=== PATIENT | female | born 1950 | race Caucasian/White ===

== ENCOUNTER → 2019-06-19 11:51 | Outpatient (CLI) | payer MEDICARE, MEDICAID, SELFPAY ==
[2019-06-19 10:57] VITALS: BMI 28.9
[2019-06-19 13:23] LABS: Absolute Lymphocyte Count 0.94 X10^3/uL (0.83-4.51); Absolute Neutrophil Count 2.8 X10^3/uL (2.0-7.7); Basophil# 0.05 X10^3/uL; Basophil% 1.2 % (0-1); Eosinophil# 0.03 X10^3/uL; Eosinophils% 0.7 % (0-5); Hematocrit 38.3 % (37-47); Hemoglobin 12.3 g/dL (12.0-15.0); Lymphocyte # 0.94 X10^3/ul (4.0); Lymphocyte % 22.3 % (19-41); Mean Corp Hgb Conc 32.1 g/dL (32-36); Mean Corpuscular Hgb 25.8 pg (27.0-32.0); Mean Corpuscular Volume 80.3 fL (81-99); Mean Platelet Vol. 9.8 fl (6.2-12.0); Monocyte# 0.39 X10^3/uL; Monocyte% 9.3 % (0-10); NRBC Flagged by Analyzer 0 % (0-5); Neutrophil # 2.79 X10^3/uL (2.7-7.7); Neutrophil % 66.3 % (47-70); Platelet Count 208 K/mm3 (150-450); RBC Distribution Width CV 13.9 % (11.6-14.6); RBC Distribution Width SD 40.9 fl (35.1-43.9); Red Blood Count 4.77 M/mm3 (4.2-5.4); White Blood Count 4.2 K/mm3 (4.4-11.0)
[2019-06-19 13:56] LABS: ALB/GLOB Ratio 0.9 RATIO (0.9-2.4); AST(SGOT) 26 U/L (15-37); Alanine Aminotransfer ALT/SGPT 39 U/L (13-56); Albumin, Serum 3.6 g/dL (3.2-5.0); Alkaline Phosphatase 100 U/L (45-117); Anion Gap 6 (5-15); BUN 22 mg/dL (7-18); BUN/Creat Ratio 24.8 RATIO (10-20); Calcium,Total 9.2 mg/dL (8.5-10.1); Chloride 106 mmol/L (98-107); Creatinine, Serum 0.89 mg/dL (0.55-1.02); EST Glomerular Filtration Rate 67 mL/min (>60); Est Glom Filt Rate - Afr Amer 82 mL/min (>60); Globulin 3.8 g/dL (2.2-4.2); Glucose 100 mg/dL (74-106); Potassium 3.5 mmol/L (3.5-5.1); Protein, Total 7.4 g/dL (6.4-8.2); Sodium Level 141 mmol/L (136-145)
== END ==
PROVIDERS: PCP Internal Medicine; Visit Provider Internal Medicine
DX: J45.909 Unspecified asthma, uncomplicated (principal); I10 Essential (primary) hypertension
CPT/HCPCS: 36415; 80053; 85025

== ENCOUNTER → 2019-10-01 12:55 | Outpatient (CLI) | payer MEDICARE, MEDICAID, SELFPAY ==
[2019-09-23 12:31] VITALS: BMI 25.5
[2019-10-01 13:46] LABS: Cholesterol 201 mg/dL (200); High Density Lipoprotein 74 mg/dL; Triglycerides 44 mg/dL; Very Low Density Lipoprotein 9 mg/dL (5-40)
== END ==
PROVIDERS: PCP Internal Medicine; Referring Provider Internal Medicine; Visit Provider Internal Medicine
DX: I10 Essential (primary) hypertension (principal); E78.5 Hyperlipidemia, unspecified
CPT/HCPCS: 80061

== ENCOUNTER → 2019-12-23 08:33 | Outpatient (CLI) | payer MEDICARE, OTHER, SELFPAY ==
[2019-09-23 12:31] VITALS: BMI 25.5
[2019-12-16 09:51] VITALS: BMI 25.5
--- NOTE | 2019-12-23 08:36 | BD_ITS ---
STUDY: DUAL ENERGY X-RAY ABSORPTIOMETRY / DXA REASON FOR EXAM: Female, 69 years old. 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 COMPARISON: None. FINDINGS: Lumbar Spine (L1-L4): g/cm2 (0.897) / T-score (-2.3) / Z-score (-0.6) Findings are suggestive of osteopenia with a high fracture risk. Left Femur Total: g/cm2 (0.703) / T-score (-2.4) / Z-score (-1.1) Left Femoral Neck: g/cm2 (0.663) / T-score (-2.7) / Z-score (-1.1) Right Femur Total: g/cm2 (0.657) / T-score (-2.8) / Z-score (-1.4) Right Femoral Neck: g/cm2 (0.658) / T-score (-2.7) / Z-score (-1.1) BD/Dexa Bone Density Study IMPRESSION: The patient is considered osteoporotic as outlined below according to World Micheal Organization (WHO) criteria with a high fracture risk. Reference Information: The T-score is the number of standard deviations above or below the standard which is normal for young adults at their peak bone mineral density. The World Health Organization (WHO) interprets the T-scores as follows: Above -1 Normal bone density Between -1 and -2.5 Osteopenia Equal to / or below -2.5 Osteoporosis As a practical clinical guideline, osteopenia may be graded as follows: Mild -1 through -1.5 Moderate -1.6 through -2.0 Severe -2.1 through -2.4 The Z-score is the number of standard deviations above or below age-matched controls. A Z-score of less than -1.5 would be considered abnormal. References: 1. NIH Osteoporosis and Related Bone Diseases http://www.osteo.org 2. International Society for Clinical Densitometry http://www.iscd.org 3. National Osteoporosis Foundation http://www.nof.org Electronically Signed: Roger Lau, at 15:43 EDT , Service support ,
== END ==
PROVIDERS: PCP Internal Medicine; Referring Provider Nurse Practitioner Family; Visit Provider Nurse Practitioner Family
DX: Z78.0 Asymptomatic menopausal state (principal)
CPT/HCPCS: 77080

== ENCOUNTER → 2020-01-06 09:53 | Outpatient (CLI) | payer MEDICARE, MEDICAID, SELFPAY ==
[2020-01-06 09:38] VITALS: BMI 25.5
[2020-01-06 11:14] LABS: Anion Gap 6 (5-15); BUN 28 mg/dL (7-18); BUN/Creat Ratio 28.7 RATIO (10-20); Calcium,Total 9.3 mg/dL (8.5-10.1); Chloride 101 mmol/L (98-107); Creatinine, Serum 0.98 mg/dL (0.55-1.02); EST Glomerular Filtration Rate 60 mL/min (>60); Est Glom Filt Rate - Afr Amer 73 mL/min (>60); Glucose 100 mg/dL (74-106); Potassium 3.4 mmol/L (3.5-5.1); Sodium Level 140 mmol/L (136-145)
[2020-01-06 11:18] LABS: Vitamin D,25 Hydroxy 18.1 ng/mL
== END ==
PROVIDERS: Nurse Practitioner Family; PCP Internal Medicine; Referring Provider Internal Medicine; Visit Provider Internal Medicine
DX: I10 Essential (primary) hypertension (principal); M81.0 Age-related osteoporosis without current pathological fracture
CPT/HCPCS: 36415; 80048; 82306

== ENCOUNTER → 2020-03-18 11:03 | Outpatient (CLI) | payer MEDICARE, MEDICAID, SELFPAY ==
[2020-03-18 10:27] VITALS: BMI 29.6
[2020-03-18 12:49] LABS: AST(SGOT) 19 U/L (15-37); Alanine Aminotransfer ALT/SGPT 30 U/L (13-56); Albumin, Serum 3.8 g/dL (3.2-5.0); Alkaline Phosphatase 84 U/L (45-117); Anion Gap 5 (5-15); BUN 24 mg/dL (7-18); BUN/Creat Ratio 26.6 RATIO (10-20); Calcium,Total 9.7 mg/dL (8.5-10.1); Chloride 106 mmol/L (98-107); EST Glomerular Filtration Rate 66 mL/min (>60); Est Glom Filt Rate - Afr Amer 80 mL/min (>60); Globulin 3.9 g/dL (2.2-4.2); Glucose 100 mg/dL (74-106); Potassium 3.8 mmol/L (3.5-5.1); Protein, Total 7.7 g/dL (6.4-8.2); Sodium Level 139 mmol/L (136-145)
== END ==
PROVIDERS: PCP Internal Medicine; Referring Provider Internal Medicine; Visit Provider Internal Medicine
DX: I10 Essential (primary) hypertension (principal)
CPT/HCPCS: 36415; 80053

== ENCOUNTER → 2020-11-02 09:50 | Outpatient (CLI) | payer MEDICARE, SELFPAY ==
[2020-11-02 09:28] VITALS: BMI 25.5
[2020-11-02 12:07] LABS: Absolute Lymphocyte Count 0.84 X10^3/uL (0.83-4.51); Basophil# 0.04 X10^3/uL; Basophil% 0.7 % (0-1); Eosinophil# 0.04 X10^3/uL; Eosinophils% 0.7 % (0-5); Hematocrit 39.6 % (37-47); Hemoglobin 12.7 g/dL (12.0-15.0); Lymphocyte # 0.84 X10^3/ul (0.83-4.51); Lymphocyte % 15.3 % (19-41); Mean Corp Hgb Conc 32.1 g/dL (32-36); Mean Platelet Vol. 10.4 fl (6.2-12.0); Monocyte# 0.51 X10^3/uL; Monocyte% 9.3 % (0-10); NRBC Flagged by Analyzer 0 % (0-5); Neutrophil # 4.03 X10^3/uL (2.7-7.7); Neutrophil % 73.6 % (47-70); Platelet Count 258 K/mm3 (150-450); RBC Distribution Width CV 14.7 % (11.6-14.6); RBC Distribution Width SD 42.7 fl (35.1-43.9); Red Blood Count 4.89 M/mm3 (4.2-5.4); White Blood Count 5.5 K/mm3 (4.4-11.0)
[2020-11-02 12:24] LABS: Vitamin D,25 Hydroxy 62.9 ng/mL
[2020-11-02 12:40] LABS: AST(SGOT) 23 U/L (15-37); Alanine Aminotransfer ALT/SGPT 32 U/L (13-56); Albumin, Serum 3.8 g/dL (3.2-5.0); Alkaline Phosphatase 94 U/L (45-117); Anion Gap 6 (5-15); BUN 24 mg/dL (7-18); BUN/Creat Ratio 27.8 RATIO (10-20); Calcium,Total 9.4 mg/dL (8.5-10.1); Chloride 103 mmol/L (98-107); Cholesterol 211 mg/dL (200); Creatinine, Serum 0.86 mg/dL (0.55-1.02); EST Glomerular Filtration Rate 69 mL/min (>60); Est Glom Filt Rate - Afr Amer 84 mL/min (>60); Glucose 96 mg/dL (74-106); High Density Lipoprotein 85 mg/dL; Potassium 3.4 mmol/L (3.5-5.1); Protein, Total 7.8 g/dL (6.4-8.2); Sodium Level 140 mmol/L (136-145); Triglycerides 71 mg/dL; Very Low Density Lipoprotein 14 mg/dL (5-40)
== END ==
PROVIDERS: PCP Internal Medicine; Visit Provider Internal Medicine
DX: I10 Essential (primary) hypertension (principal); M81.0 Age-related osteoporosis without current pathological fracture
CPT/HCPCS: 36415; 80053; 80061; 82306; 85025

== ENCOUNTER → 2020-11-29 15:04 | Outpatient (CLI) | payer MEDICARE, MEDICAID, SELFPAY ==
[2020-11-02 09:28] VITALS: BMI 25.5
--- NOTE | 2020-11-29 15:16 | RAD_ITS ---
STUDY: X-RAY - LUMBAR SPINE REASON FOR EXAM: Female, 70 years old. Low back pain TECHNIQUE: 3 view(s) of the lumbar spine were obtained. COMPARISON: None FINDINGS: Normal lumbar lordosis. There is no substantial scoliosis. There is a normal alignment of the vertebrae. Normal vertebral bodies and endplates. No fracture. Mild disc space narrowing at L4-5 and L5-S1. Disc spaces are otherwise well-maintained. The soft tissue structures are unremarkable. RAD/Lumbar Spine 2 or 3 Views IMPRESSION: 1. No acute findings. 2. Mild degenerative disc changes. Electronically Signed: Tess Vaca MD at 23:53 EDT Tel , Service support ,
== END ==
PROVIDERS: PCP Internal Medicine; Referring Provider Internal Medicine; Visit Provider Internal Medicine
DX: M54.5 Low back pain (principal)
CPT/HCPCS: 72100

== ENCOUNTER → 2020-12-31 | Outpatient (CLI) | payer MEDICARE, MEDICAID, SELFPAY ==
[2020-12-30 17:17] VITALS: BMI 29.2
[2020-12-31 14:53] LABS: Bacteria 0 SEEN /hpf (None Seen); Mucous, Urine 0 SEEN /hpf (<or=2+)
[2020-12-31 15:03] LABS: Color, Urine Yellow (Yellow); Glucose, Dipstick Normal (Normal); Ketone-Dipstick Negative (Negative); Leukocyte Esterase-Dipstick 100 /ul (Negative); Nitrite-Dipstick Negative (Negative); Occult Blood-Urine 250 /ul (Negative); Protein-Dipstick Negative (Negative); Urine Bilirubin Dipstick Negative (Negative); Urine Clarity Clear (Clear); Urine Urobilinogen Normal (Normal)
[2020-12-31 15:17] LABS: Squamous Epithelial Cells - UA 5-10 SEEN /hpf (5-10); White Blood Cells 0-5 SEEN /hpf (0-5)
[2020-12-31 15:18] LABS: Red Blood Cells-Urine 0-5 SEEN /hpf (0-5)
== END | disposition home or self-care (01) ==
PROVIDERS: PCP Internal Medicine; Visit Provider Physician Assistant Surgical
DX: R31.9 Hematuria, unspecified (principal)
CPT/HCPCS: 81001; 87086; 87088

== ENCOUNTER → 2021-01-31 10:27 | Outpatient (CLI) | payer MEDICARE, MEDICAID, SELFPAY ==
[2021-01-31 10:44] LABS: Bacteria 0 SEEN /hpf (None Seen); Mucous, Urine 0 SEEN /hpf (<or=2+); Squamous Epithelial Cells - UA 0 SEEN /hpf (5-10)
[2021-01-31 12:15] LABS: Color, Urine Yellow (Yellow); Glucose, Dipstick Normal (Normal); Ketone-Dipstick Negative (Negative); Leukocyte Esterase-Dipstick 25 /ul (Negative); Nitrite-Dipstick Negative (Negative); Occult Blood-Urine 50 /ul (Negative); Protein-Dipstick Negative (Negative); Urine Bilirubin Dipstick Negative (Negative); Urine Clarity Clear (Clear); Urine Urobilinogen Normal (Normal)
[2021-01-31 12:25] LABS: Red Blood Cells-Urine 5-10 SEEN /hpf (0-5); White Blood Cells 0-5 SEEN /hpf (0-5)
[2021-01-31 12:39] LABS: Anion Gap 7 (5-15); BUN 26 mg/dL (7-18); BUN/Creat Ratio 29.7 RATIO (10-20); Calcium,Total 9.3 mg/dL (8.5-10.1); Chloride 102 mmol/L (98-107); Creatinine, Serum 0.88 mg/dL (0.55-1.02); EST Glomerular Filtration Rate 68 mL/min (>60); Est Glom Filt Rate - Afr Amer 83 mL/min (>60); Glucose 101 mg/dL (74-106); Potassium 3.6 mmol/L (3.5-5.1); Sodium Level 140 mmol/L (136-145)
== END ==
PROVIDERS: PCP Internal Medicine; Referring Provider Internal Medicine; Visit Provider Internal Medicine
DX: I10 Essential (primary) hypertension (principal); R31.9 Hematuria, unspecified
CPT/HCPCS: 36415; 80048; 81001

== ENCOUNTER → 2021-05-02 11:25 | Outpatient (CLI) | payer MEDICARE, MEDICAID, SELFPAY ==
[2021-05-02 11:27] LABS: Bacteria 0 SEEN /hpf (None Seen); Mucous, Urine 0 SEEN /hpf (<or=2+); White Blood Cells 0 SEEN /hpf (0-5)
[2021-05-02 12:18] LABS: Color, Urine Yellow (Yellow); Glucose, Dipstick Normal (Normal); Ketone-Dipstick 5 mg/dl (Negative); Leukocyte Esterase-Dipstick 25 /ul (Negative); Nitrite-Dipstick Negative (Negative); Occult Blood-Urine 150 /ul (Negative); Protein-Dipstick 15 mg/dl (Negative); Urine Bilirubin Dipstick Negative (Negative); Urine Clarity Sl. Cloudy (Clear); Urine Urobilinogen Normal (Normal)
[2021-05-02 12:28] LABS: Red Blood Cells-Urine 0-5 SEEN /hpf (0-5); Squamous Epithelial Cells - UA 0-5 SEEN /hpf (5-10)
== END ==
PROVIDERS: PCP Internal Medicine; Referring Provider Internal Medicine; Visit Provider Internal Medicine
DX: R31.9 Hematuria, unspecified (principal)
CPT/HCPCS: 81001

== ENCOUNTER → 2021-05-18 | Outpatient (CLI) | payer MEDICARE, MEDICAID, SELFPAY ==
--- NOTE | 2021-05-18 11:00 | CYSPIN_PTH ---
PATIENT: ARIANA CHRISTIAN LOC: [facility] U#:[id number] AGE/SX: 71/F ROOM: RE05/18/[address]: Dr. Tonya Mcdaniel MD : 1950 BED: DIS: 05/18/2021 SPEC #: [id number] RECD: 05/18/21 15:00 STATUS: KIRBY BOLA #: [id number] BAILEY: 05/18/21 11:[address]: Tonya Mcdaniel DEPT: CYTOLOGY RECD BY: Jacinto Sherwood ENTERED: 05/19/21 09:35 SP TYPE: CYSPIN FL OTHR DR: Dr. Aidan Hall MD Tissues: Urine Procedures: Pap Stain (control) Special Stain Group II Cytospin Fluid HEADER OPERATION: Not noted PRE-OP DIAGNOSIS: Gross hematuria TISSUE SUBMITTED: Urine for cytology DIAGNOSIS CYTOLOGY Urine for cytology (cytospin): Atypical urothelial cells present. AM:alo 05/19/2021 CYTOLOGY STUDY Slides are reviewed. CYTOLOGY GROSS Received is 40 ml of cloudy yellow fluid labeled with the patient's name and and designated per the requisition as urine. Submitted for cytology preparation. / alo 05/19/2021 TC:? CPT: 92464
[2021-05-18 17:40] LABS: Cytology, Body Fluid / CSF SEE PATHOLOGY REPORT
== END | disposition home or self-care (01) ==
PROVIDERS: PCP Internal Medicine; Visit Provider Urology
DX: R31.0 Gross hematuria (principal)
CPT/HCPCS: 88108; 88313

== ENCOUNTER 2021-06-01 14:30 | Outpatient (RCR) | payer MEDICARE, MEDICAID, SELFPAY ==
[2020-11-02 09:28] VITALS: BMI 25.5
--- NOTE | 2020-11-30 13:48 | HP.PTEVAL_ITS ---
Patient's Visit Information ARIANA CHRISTIAN is a 70 year old F referred to Physical Therapy by Dr. Aidan Hall MD with a diagnosis of LOW BACK PAIN. Date of Evaluation: 11/30/20 Physical Therapist: Seven Juarez PT, Cert MDT, OCS - Visit Plan Frequency: 2x /Week Duration: 4 Weeks Plan: AVOID EXTREME FLEXION OSTEOPORISIS. PT INTERVETIONS DLS ABD,POSTURE EX'S, LE STRENGTHENIN AND MODALTIES NEEDEDED - Subjective This 70 y/o female presents to physical therapy with back pain for about one year. LBP as worse in past 2 months . Patient did have bone density thus has osteoporosis. Patient did have x-ray showed DDD. Seen DR recommended PT . Pain is located symmetrical Lumbar and lateral hips. Aggravating factors lifting, standing, walking and sitting. Alleviating factors rest./ice. Coughing/sneezing- . Bowel/bladder-. Denies parathesia/tingling -. Sleeping is affected by pain. No prior treatment .Worse in the morning. Patient does have h/o of falling last year sliding down hill. Patient goal is to minimize pain. Patient uses cane for balance. Patient back pain affects function and ADLS'. Patient pain affects OL. SOCIAL: . VOCATION; retired - Pain Bilateral Back Pain Intensity (Out of 10): 8 Pain Intensity Range: 10 - Objective POSTURE: mild forward posture. GAIT: ambulates with small base quad cane antal gic gait slow shan. SYMMTRIES: align. PALAPTION: unremarkable. NUERO: denies parathesia/tingling, reflexes L4-5,L5-S1 1/3. MMT: quads/hams 4/5,hip flexion 4-/5,ankle 4/5. LUMBAR ROM: flexion mod loss, extension severe loss, side glides min/mod loss. FLEXABLITY: hams min tight ,piriformis mod tight. IR of hip: 25 degrres - Special Tests L/S Slump test left side: Negative L/S Slump test right side: Negative L/S Left Straight Leg Raise: Negative L/S Right Straight Leg Raise: Negative - Goals Goal 1:: I with HEP Goal Time Frame: 4-6 Weeks Goal 2:: Improve quality of gait with less pain using QC. Goal Time Frame: 4-6 Weeks Goal 3:: Patient to decrease LBP by 50% or > to improve function with ADLS'S Goal Time Frame: 4-6 Weeks Goal 4:: Patient to improve lumbar ROM for function of recovery Goal Time Frame: 4-6 Weeks Goal 5:: Patient to improve back nowestry score by 5 points or > to improve QOL. Goal Time Frame: 4-6 Weeks - Rehabilitation Potential Physical Therapy Diagnosis: This patient has LBP with symmetrical pain, decrease lumbar ROM , decrease gait and impairs function with standing during ADL's thus benefit from skilled PT Rehabilitation Potential: Good - Anticipated Interventions Patient/Client Instruction: Educate patient on: Condition, Plan of Care For the Purpose of:: To decrease pain, To increase ROM, To improve muscle performance and motor function, To improve ability to perform ADL's, To increase tolerance to activity/condition/position, To improve performance and independence with ADL's, To improve ability of physical actions for home/community/work/leisure, To increase flexibility/ROM, To reduce risk of recurrence, To improve ability to perform tasks related to life management Therapeutic Exercise to Include: Strength training, Body mechanics, Postural training, Dynamic Lumbar Stabilization Comment: BLE For the Purpose of:: To decrease pain, To improve muscle performance and motor function, To improve ability to perform ADL's, To increase tolerance to activity/condition/position, To improve ability of physical actions for home/community/work/leisure, To improve health of tissue, To reduce risk of recurrence, To improve ability to perform tasks related to life management TENS: Yes IF ES: Yes Cryotherapy (ice pack, ice massage): Yes Thermo therapy (hot pack): Yes Ultrasound (thermal/non thermal): Yes For the Purpose of:: To decrease pain, To improve nutrient delivery to tissue, To increase oxygenation perfusion, To improve health of tissue, To decrease soft tissue restriction Thank you for the opportunity to evaluate your patient. For Medicare and Medicare HMO plans, please review the plan of care and approve it. It will need to be FAXED BACK to us at [phone] for Medicare purposes. For Medicare only, by signing this I certify the plan of care. Please let me know if there are questions or concerns regarding this plan of care. Physician Signature: Date:
--- NOTE | 2021-01-02 13:00 | HP.PTREVAL ---
Dr. Aidan Hall MD, It has been my pleasure to treat ARIANA CHRISTIAN over the last 7 visits for LOW BACK PAIN. Please see the progress note below for an update on the physical therapy plan of care! Subjective: Doing better. less pain overall. Objective/Function: POSTURE: MIN THORACIC KYPHOSIS. GAIT: AMBULATES WITH QC MILD UNSTEADY. MMT: QUADS/HAMS 4/5,HIP FLEXION 4-/5. LUMBAR ROM: FLEXION MOD LOSS,EXT MOD LOSS Plan Plan: AVOID EXTREME FLEXION OSTEOPORISIS. PT INTERVETIONS DLS, ABD and POSTURE EX'S, LE STRENGTHENING AND MODALTIES NEEDEDED Balance/Gait/Functional tests - Balance/Special Test Scores Oswestry Low Back Score: 26 Goals Goal 1:: I with HEP Goal Time Frame: 4-6 Weeks Goal Progress: Progressing Goal 2:: Improve quality of gait with less pain using QC. Goal Time Frame: 4-6 Weeks Goal Progress: Progressing Goal 3:: Patient to decrease LBP by 60% or > to improve function with ADLS'S Goal Time Frame: 4-6 Weeks Goal Progress: Progressing Goal 4:: Patient to improve lumbar ROM for function of recovery Goal Time Frame: 4-6 Weeks Goal Progress: Progressing Goal 5:: Patient to improve back nowestry score by 5 points or > to improve QOL. Goal Time Frame: 4-6 Weeks Goal Progress: Progressing Anticipated Interventions Patient/Client Instruction: Educate patient on: Condition, Plan of Care For the Purpose of:: To decrease pain, To increase ROM, To improve muscle performance and motor function, To improve ability to perform ADL's, To increase tolerance to activity/condition/position, To improve performance and independence with ADL's, To improve ability of physical actions for home/community/work/leisure, To increase flexibility/ROM, To reduce risk of recurrence, To improve ability to perform tasks related to life management Therapeutic Exercise to Include: Strength training, Body mechanics, Postural training, Dynamic Lumbar Stabilization Comment: BLE For the Purpose of:: To decrease pain, To improve muscle performance and motor function, To improve ability to perform ADL's, To increase tolerance to activity/condition/position, To improve ability of physical actions for home/community/work/leisure, To improve health of tissue, To reduce risk of recurrence, To improve ability to perform tasks related to life management TENS: Yes IF ES: Yes Cryotherapy (ice pack, ice massage): Yes Thermo therapy (hot pack): Yes Ultrasound (thermal/non thermal): Yes For the Purpose of:: To decrease pain, To improve nutrient delivery to tissue, To increase oxygenation perfusion, To improve health of tissue, To decrease soft tissue restriction Please do not hesitate to contact me at [phone] by phone or if you have questions or concerns regarding this new plan of care! Sincerely, Seven Juarez, PT, Cert MDT, OCS
--- NOTE | 2021-02-27 17:19 | HP.PTREVAL ---
Dr. Aidan Hall MD, It has been my pleasure to treat ARIANA CHRISTIAN over the last 19 visits for LOW BACK PAIN. Please see the progress note below for an update on the physical therapy plan of care! Subjective: Patient is doing well ..overall able to walk without cane . Pain is less symmetrical worse in morning Objective/Function: POSTURE: MILD FORWARD POSTURE. GAIT: RECIPROCAL PATTERN MILD FORWARD POSTURE LATERAL SWAY. MMT: QUADS/HAMS 4/5 ,HIP F;LEXION 4-/5. LUMBAR ROM: FLEXION MIN LOSS,EXTENSION MOD LOSS Plan Plan: cont with poc 2xweek for 4 vweeks. AVOID EXTREME FLEXION OSTEOPORISIS. PT INTERVETIONS DLS, ABD and POSTURE EX'S, LE STRENGTHENING AND MODALTIES NEEDEDED Balance/Gait/Functional tests - Balance/Special Test Scores Oswestry Low Back Score: 17 Goals Goal 1:: I with HEP Goal Time Frame: 4-6 Weeks Goal Progress: Progressing Goal 2:: Improve quality of gait with antalgic gait with no cane . ( new GOAL) Goal Time Frame: 4-6 Weeks Goal Progress: Progressing Goal 3:: Patient to decrease LBP by 60% or > to improve function with ADLS'S Goal Time Frame: 4-6 Weeks Goal Progress: Progressing Goal 4:: Patient to improve lumbar ROM for function of recovery Goal Time Frame: 4-6 Weeks Goal Progress: Progressing Goal 5:: Patient to improve back owestry score by 5 points to improve QOL.( new goal) Goal Time Frame: 4-6 Weeks Goal Progress: Progressing Goal 6:: Patient increase hips to 4/5 tp improve gait Anticipated Interventions Patient/Client Instruction: Educate patient on: Condition, Plan of Care For the Purpose of:: To decrease pain, To increase ROM, To improve muscle performance and motor function, To improve ability to perform ADL's, To increase tolerance to activity/condition/position, To improve performance and independence with ADL's, To improve ability of physical actions for home/community/work/leisure, To increase flexibility/ROM, To reduce risk of recurrence, To improve ability to perform tasks related to life management Therapeutic Exercise to Include: Strength training, Body mechanics, Postural training, Dynamic Lumbar Stabilization Comment: BLE For the Purpose of:: To decrease pain, To improve muscle performance and motor function, To improve ability to perform ADL's, To increase tolerance to activity/condition/position, To improve ability of physical actions for home/community/work/leisure, To improve health of tissue, To reduce risk of recurrence, To improve ability to perform tasks related to life management TENS: Yes IF ES: Yes Cryotherapy (ice pack, ice massage): Yes Thermo therapy (hot pack): Yes Ultrasound (thermal/non thermal): Yes For the Purpose of:: To decrease pain, To improve nutrient delivery to tissue, To increase oxygenation perfusion, To improve health of tissue, To decrease soft tissue restriction Please do not hesitate to contact me at [phone] by phone or if you have questions or concerns regarding this new plan of care! Sincerely, Seven Juarez, PT, Cert MDT, OCS
--- NOTE | 2021-04-25 14:59 | HP.PTREVAL ---
Dr. Aidan Hall MD, It has been my pleasure to treat ARIANA CHRISTIAN over the last 28 visits for LOW BACK PAIN. Please see the progress note below for an update on the physical therapy plan of care! Subjective: PT is helping gait pain and able to use cane for walking. So walking is better with endurance Objective/Function: POSTURE: mild forward posture. NEURO: c/o paresthesia in feet, reflexes L3-4,L4-5,L5-S1 2/3. MMT: QUADS/HAMS /HIP 4/5. LUMBAR ROM: flexion min ,extension mod severe Plan Plan: cont with poc 1xweek for 4 vweeks with goals to I gym program. AVOID EXTREME FLEXION OSTEOPORISIS. PT INTERVETIONS DLS, ABD and POSTURE EX'S, LE STRENGTHENING Balance/Gait/Functional tests - Balance/Special Test Scores Oswestry Low Back Score: 13 Goals Goal 1:: I with HEP and gym program( no goals Goal Time Frame: 4-6 Weeks Goal Progress: Progressing Goal 2:: Improve quality of gait with antalgic gait with no cane community distances . ( new GOAL) Goal Time Frame: 4-6 Weeks Goal Progress: Progressing Goal 3:: Patient to decrease LBP by 70% or > to improve function with ADLS'S( new goal) Goal Time Frame: 4-6 Weeks Goal Progress: Progressing Goal 4:: Patient to improve lumbar ROM for function of recovery Goal Time Frame: 4-6 Weeks Goal Progress: Progressing Goal 5:: Patient to improve back owestry score by 5 points to improve QOL.( new goal) Goal Time Frame: 4-6 Weeks Goal Progress: Progressing Goal 6:: Patient increase hips to 4/5 tp improve gait Goal Progress: Goal Met Anticipated Interventions Patient/Client Instruction: Educate patient on: Condition, Plan of Care For the Purpose of:: To decrease pain, To increase ROM, To improve muscle performance and motor function, To improve ability to perform ADL's, To increase tolerance to activity/condition/position, To improve performance and independence with ADL's, To improve ability of physical actions for home/community/work/leisure, To increase flexibility/ROM, To reduce risk of recurrence, To improve ability to perform tasks related to life management Therapeutic Exercise to Include: Strength training, Body mechanics, Postural training, Dynamic Lumbar Stabilization Comment: BLE For the Purpose of:: To decrease pain, To improve muscle performance and motor function, To improve ability to perform ADL's, To increase tolerance to activity/condition/position, To improve ability of physical actions for home/community/work/leisure, To improve health of tissue, To reduce risk of recurrence, To improve ability to perform tasks related to life management TENS: Yes IF ES: Yes Cryotherapy (ice pack, ice massage): Yes Thermo therapy (hot pack): Yes Ultrasound (thermal/non thermal): Yes For the Purpose of:: To decrease pain, To improve nutrient delivery to tissue, To increase oxygenation perfusion, To improve health of tissue, To decrease soft tissue restriction Please do not hesitate to contact me at [phone] by phone or if you have questions or concerns regarding this new plan of care! Sincerely, Seven Juarez, PT, Cert MDT, OCS
--- NOTE | 2021-06-01 14:51 | HP.PTDCSUM_ITS ---
It has been my pleasure to treat ARIANA CHRISTIAN referred by Dr. Aidan Hall MD, with the diagnosis of LOW BACK PAIN for a total of 32 visit(s). Discharge Date: 06/01/21 Please see the following information for a summary of their discharge status. Subjective: Doing okay ..may start ex's at [employer] Bilateral Back Pain Intensity (Out of 10): 4 % Improvement: 50 Objective/Function: POSTURE: MILD FORWARD. GAIT: AMBULATES WITH ATAXIA GAIT PATTEN INCREASE ANN MARIE UNSTEADY. MMT: QUADS/HAMS 4/5 ,HIP 4-/5,ANKLE 4/5 Goal 1:: I with HEP and gym program( no goals Goal Progress: Goal Met Goal 2:: Improve quality of gait with antalgic gait with no cane community distances . ( new GOAL) Goal Progress: Goal Met Goal 3:: Patient to decrease LBP by 70% or > to improve function with ADLS'S( new goal) Goal Progress: Goal Met Goal 4:: Patient to improve lumbar ROM for function of recovery Goal Progress: Goal Met Goal 5:: Patient to improve back owestry score by 5 points to improve QOL.( new goal) Goal Progress: Goal Met Goal 6:: Patient increase hips to 4/5 tp improve gait Goal Progress: Goal Met Plan: D/C Discharge Comments: HEP and/or possibe gym If there are questions or concerns regarding this patient's physical therapy, please feel free to call me at [phone]. Thank you for the referral of this patient. Sincerely, Seven Juarez, PT, Cert MDT, OCS Balance/Gait/Functional tests - Balance/Special Test Scores Oswestry Low Back Score: 7
== END 2021-06-01 19:00 | disposition home or self-care (01) ==
LOC: PT 14:30
PROVIDERS: PCP Internal Medicine; Referring Provider Internal Medicine; Visit Provider Internal Medicine
DX: M54.50 Low back pain, unspecified (principal)
CPT/HCPCS: 97110; 97162; 97530

== ENCOUNTER 2021-06-05 15:01 | Outpatient (CLI) | payer MEDICARE, MEDICAID, SELFPAY ==
--- NOTE | 2021-06-05 15:13 | CT_ITS ---
STUDY: CT ABDOMEN AND PELVIS WITH AND WITHOUT CONTRAST REASON FOR EXAM: Female, 71 years old. GROSS HEMATURIA RADIATION DOSAGE (If Supplied By Facility): CTDIvol = ( 19.97 ) mGy, DLP = ( 2863.49 ) mGycm TECHNIQUE: Transaxial images were obtained from the dome of the diaphragm to the symphysis pubis without oral contrast. IV 100mL Isovue-300 was administered. Sagittal and coronal images were reconstructed. Individualized dose optimization techniques were used for this CT. COMPARISON: None. FINDINGS: There is a tiny noncalcified reticulonodular opacity at the left base measuring approximately 9.3 x 8.4 mm possibly representing scarring. The visualized portions of the heart are within normal limits. Small hiatal hernia is noted Liver is normal in size. There is a tiny hypoattenuated density in the right kidney which is too small to characterize most likely a small cyst. Bile ducts are nondilated Contracted thick-walled gallbladder without calcified stones likely physiologic.. Normal spleen. Normal pancreas. Normal bilateral adrenal glands. No evidence for renal obstruction. There is a tiny cortical cyst in the right kidney and a small parapelvic cyst in left. Normal visualized stomach. Normal small intestine. Normal colon. No evidence for acute appendicitis. Normal abdominal aorta. Normal inferior vena cava. Normal retroperitoneum. Normal urinary bladder. Small left ovarian cyst measuring 2.4 x 1.9 cm Normal abdominal wall. Lumbar spine demonstrates mild spondylosis Old healed fracture of the left inferior pubis at the ischiopubic junction CT/CT Abd/Pelvis W/WO Contrast IMPRESSION: Tiny right renal cyst and small parapelvic left renal cyst.. Mild fatty infiltrated liver. Probable tiny cyst in the right lobe Small left ovarian cyst approximately 2.4 x 1.9 cm Electronically Signed: Brian Santa MD at 16:03 EST , Service support ,
[2021-06-05 15:30] LABS: CREATININE FINGERSTICK 0.9 mg/dL (0.55-1.02); EGFR FINGERSTICK > 60.0000 mL/min (>60)
== END 2021-06-05 23:59 | disposition short-term general hospital (02) ==
LOC: CT 15:09
PROVIDERS: PCP Internal Medicine; Referring Provider Urology; Visit Provider Urology
DX: R31.0 Gross hematuria (principal); K76.0 Fatty (change of) liver, not elsewhere classified; N28.1 Cyst of kidney, acquired; N83.202 Unspecified ovarian cyst, left side
CPT/HCPCS: 74178; Q9967

== ENCOUNTER 2021-07-31 06:49 | Day surgery (SDC) | payer MEDICARE, MEDICAID, SELFPAY ==
--- NOTE | 2021-07-28 10:07 | EKG12_ITS ---
Test Reason : PRE OP Blood Pressure : / mmHG Vent. Rate : 092 BPM Atrial Rate : 092 BPM P-R Int : 146 ms QRS Dur : 076 ms QT Int : 384 ms P-R-T Axes : 059 061 043 degrees QTc Int : 474 ms Normal sinus rhythm Nonspecific ST abnormality Abnormal ECG Confirmed by JANNET JIMENEZ, ELIO ([id number]), editor newspaper SKYLER HEWITT ([id number]) on 07/31/2021 11:05:40 AM Referred By: Tonya Mcdaniel Confirmed By:ELIO POWER MD
[2021-07-28 11:21] LABS: Hematocrit 39.3 % (37-47); Hemoglobin 13.2 g/dL (12.0-15.0); Mean Corp Hgb Conc 33.6 g/dL (32-36); Mean Corpuscular Hgb 26.7 pg (27.0-32.0); Mean Corpuscular Volume 79.6 fL (81-99); Platelet Count 218 K/mm3 (150-450); RBC Distribution Width CV 14.2 % (11.6-14.6); RBC Distribution Width SD 40.8 fl (35.1-43.9); Red Blood Count 4.94 M/mm3 (4.2-5.4); White Blood Count 5.3 K/mm3 (4.4-11.0)
[2021-07-28 11:53] LABS: Anion Gap 6 (5-15); BUN 17 mg/dL (7-18); BUN/Creat Ratio 19.3 RATIO (10-20); Calcium,Total 9.4 mg/dL (8.5-10.1); Chloride 102 mmol/L (98-107); Creatinine, Serum 0.88 mg/dL (0.55-1.02); EST Glomerular Filtration Rate 67 mL/min (>60); Est Glom Filt Rate - Afr Amer 82 mL/min (>60); Glucose 98 mg/dL (74-106); Potassium 3.2 mmol/L (3.5-5.1); Sodium Level 141 mmol/L (136-145)
--- NOTE | 2021-07-31 | BLA_PTH ---
PATIENT: ARIANA CHRISTIAN [place] [facility] [id number] AGE/SX: 71/F ROOM: RE07/31/[address]: Dr. Tonya Mcdaniel MD : 1950 BED: DIS: 07/31/2021 SPEC #: [id number] RECD: 07/31/21 15:22 STATUS: [place] #: [id number] BAILEY: 07/31/21 00:[address]: Tonya Mcdaniel DEPT: SURGICAL PATHOLOGY RECD BY: Mingo Allen ENTERED: 08/01/21 08:29 SP TYPE: BLADDER BX OTHR DR: Dr. Aidan Hall MD Tissues: Urinary bladder, NOS Procedures: Surgery Specimen Level IV HEADER OPERATION: Cystoscopy, bladder biopsy with fulguration PRE-OP DIAGNOSIS: Gross hematuria, neoplasm of bladder TISSUE SUBMITTED: Bladder lesion biopsy MICROSCOPIC DIAGNOSIS Bladder lesion, biopsy: Consistent with inverted papilloma extensive squamous metaplasia. Negative for malignancy. See comment. JEFF:alo 08/02/2021 COMMENT Clinical correlation and appropriate follow up are necessary. Please make reference to previous specimen ([id number]) urine for cytology with diagnosis of ?atypical urothelial cells present.? Case has been reviewed in consultation with Dr. Hoang who concurs with the above diagnosis. IDC:AM MICROSCOPIC DESCRIPTION Slides are reviewed. GROSS DESCRIPTION Received in fixative is one container labeled with the patient's name and designated bladder lesion biopsy. The specimen consists of multiple irregular fragments of light muro soft tissue that in aggregate measure 1 x 0.2 x 0.1 cm. The specimen is totally submitted in one cassette. / JEFF:alo 08/02/2021 TC:1 CPT: 68781
[2021-07-31 07:24] VITALS: BP 132/69; PULSE 97; RESP 16; TEMP 36.1; O2SAT 97; BMI 28.5
[2021-07-31] MEDS: Lactated Ringers 1,000 ML 15 ML IV (07:31)
--- NOTE | 2021-07-31 08:01 | PCM.OPRPT ---
Problems Associated Problem List Diagnoses (1) Neoplasm of unspecified behavior of bladder: (2) Gross hematuria: Report of Operation Date of Procedure: 07/31/21 Pre-Operative Diagnosis: Neoplasm of the bladder of unspecified significance, gross hematuria Post-Operative Diagnosis: Same Surgery/Procedure Performed:: Cystoscopy, bladder biopsy with fulguration Surgeon: Tonya Mcdaniel Type of Anesthesia: MAC Specimen's removed: Bladder biopsies Description of Procedure: The patient is a 71-year-old female who had gross hematuria with evaluation with cystoscopy in the office. This revealed an irregular trigone. After discussing the risks, benefits and alternatives, the patient agreed to proceed with biopsy under anesthesia. The patient was taken to the operating room and placed on the operating room table. Anesthesia monitored the head, neck, airway, IV access and vital signs throughout the case. Once anesthesia was appropriately administered the patient was placed into dorsal lithotomy position was prepped and draped in usual sterile fashion. The cystoscope was inserted through the urethra under direct visualization into the urinary bladder. The bladder mucosa in its entirety was visualized. The area of irregularity was a white patch possibly consistent with squamous metaplasia was identified on the area of the trigone. The erythema associated with this in the office has resolved. Three biopsy specimens were removed with flexible biopsy forceps and the area was fulgurated with a Bugbee for hemostatic control and tissue treatment. Care was taken to avoid injury of the ureteral orifices which remained intact at the conclusion of fulguration. At this time the patient's bladder was emptied and the case was terminated she was awakened and taken to the recovery room in good condition. There were no complications during this procedure. Grafts/Implants Used: None Complications None Admit VTE Documentation VTE Present on Admission: Yes VTE Mechan Device Prophylaxis: SCD's VTE Pharm Prophylaxis ordered?: No Reason prophylaxis not ordered:: Treatment Not Indicated
--- NOTE | 2021-07-31 08:04 | PCM.DC ---
Discharge Instructions Diet Discharge Diet: No restrictions Activity Discharge Activity: Return to Normal Activity Dressing / Incision Call your doctor if you observe: Fever of 101 or Higher, Inability to urinate, Inability to have a bowel movement and - (passing blood clots in urine) Follow Up Care Please Follow Up With: Tonya Mcdaniel MD When: in 1 week, call office for appt Test Results: Test results from this visit will be discussed in further detail at your follow-up appointment, if applicable. Discharge Plan Admission Attending Provider: Tonya Mcdaniel Primary Care Provider: Aidan Hall Discharge Orders/Prescriptions Prescriptions: New oxycodone-acetaminophen [Percocet] 5-325 mg tablet 1 tab PO Q8H PRN (Reason: pain) 3 Days Qty: 10 RF: 0 cephalexin [cephalexin] 500 MG capsule 500 mg PO Q12 3 Days Qty: 6 RF: 0 phenazopyridine [Pyridium] 200 MG tablet 200 mg PO TID PRN PRN (Reason: Bladder Spasms) 7 Days Qty: 30 RF: 0 Continued esomeprazole magnesium [Nexium] 20 mg capsule,delayed release(DR/EC) 20 mg PO DAILY RF: 0 fluoxetine 40 mg capsule 40 mg PO DAILY 30 Days Qty: 90 RF: 3 baclofen 10 mg tablet 10 mg PO BID PRN (Reason: back pain) Qty: 60 RF: 1 (DME) Lift Chair See Rx Instructions .Route .MEDSUPPLY Qty: 1 RF: 0 cholecalciferol (vitamin D3) 25 mcg (1,000 unit) capsule 25 mcg PO DAILY RF: 0 buspirone 5 mg tablet 5 mg PO BID 90 Days Qty: 180 RF: 2 calcium 600 mg Capsule 1,200 mg PO DAILY RF: 0 docusate sodium 100 mg Tablet 100 mg PO BID RF: 0 Probiotic 10 billion cell Capsule 10,000 mmu cells PO DAILY RF: 0 montelukast [Singulair] 10 mg tablet 10 mg PO DAILY RF: 0 Prolia 60 mg/mL syringe 60 mg SC [id number] Qty: 1 RF: 1 albuterol sulfate [ProAir HFA] 90 mcg/actuation HFA aerosol inhaler 2 inh INHALATION Q6H PRN (Reason: shortness of breath or wheezing) Qty: 8.5 RF: 3 hydrochlorothiazide 25 mg tablet 25 mg PO QAM Qty: 90 RF: 3 potassium chloride 20 mEq tablet extended release 20 meq PO DAILY Qty: 90 RF: 3 amlodipine 5 mg tablet 5 mg PO DAILY Qty: 90 RF: 3 Symbicort 80-4.5 mcg/actuation HFA aerosol inhaler 2 puff INHALATION BID Qty: 10.2 RF: 3 Referrals / Follow Up: Aidan Hall MD [Primary Care Provider] - Disposition Disposition (needs filled in before D/C Order can be placed): Home, Self Care
[2021-07-31] MEDS: Cefazolin 2 GM in 0.9% Normal Saline 100 ML IV (08:09)
[2021-07-31 08:22] LABS: Potassium 3.4 mmol/L (3.5-5.1)
[2021-07-31 08:35] VITALS: BP 107/67; BP 132/69; PULSE 101; RESP 16; TEMP 36.6; O2SAT 100
[2021-07-31 08:40] VITALS: BP 109/65; BP 132/69; PULSE 101; RESP 16; O2SAT 98
[2021-07-31 08:45] VITALS: BP 113/65; BP 132/69; PULSE 102; RESP 16; O2SAT 94
[2021-07-31 08:50] VITALS: BP 110/67; BP 132/69; PULSE 96; RESP 16; TEMP 36.6; O2SAT 93
[2021-07-31 10:00] VITALS: BP 113/70; BP 132/69; PULSE 96; RESP 18; O2SAT 95
== END 2021-07-31 23:59 | disposition home or self-care (01) ==
LOC: SDC 06:50 → AC 06:51
PROVIDERS: Anesthesiology; PCP Internal Medicine; Referring Provider Urology; Visit Provider Urology
PROC: 0TBB8ZX Excision of Bladder, Via Natural or Artificial Opening Endoscopic, Diagnostic (ICD-10-PCS; CPT 52204; principal; 2021-07-31 08:05)
DX: N32.89 Other specified disorders of bladder (principal); N39.46 Mixed incontinence; N39.44 Nocturnal enuresis; K59.00 Constipation, unspecified; R31.0 Gross hematuria; I10 Essential (primary) hypertension; J45.909 Unspecified asthma, uncomplicated; K21.9 Gastro-esophageal reflux disease without esophagitis; M81.0 Age-related osteoporosis without current pathological fracture; M19.90 Unspecified osteoarthritis, unspecified site; E78.5 Hyperlipidemia, unspecified; F32.A Depression, unspecified; F41.9 Anxiety disorder, unspecified; Z79.51 Long term (current) use of inhaled steroids; Z79.899 Other long term (current) drug therapy; Z20.822 Contact with and (suspected) exposure to COVID-19
CPT/HCPCS: 52204; 00910; 36415; 80048; 84132; 85027; 87426; 88305; 93005; C9803; J7120; J2405

== ENCOUNTER 2021-09-11 15:00 | Outpatient (RCR) | payer MEDICARE, MEDICAID, SELFPAY ==
--- NOTE | 2021-06-26 16:20 | HP.PTEVAL_ITS ---
Patient's Visit Information ARIANA CHRISTIAN is a 71 year old F referred to Physical Therapy by Dr. Aidan Hall MD with a diagnosis of OTHER ABNORMATIIES OF GAIT AND MOBILITY. Date of Evaluation: 06/26/21 Physical Therapist: Seven Juarez, PT, Cert MDT, OCS - Visit Plan Frequency: 2x /Week Duration: 4 Weeks Plan: PT INTERVETIONS PRORESSIVE BALANCE PROGRAM,ENDUARNCE PROGRAM AND STRENGTHENING - Subjective This 71 y/o female presents to physical therapy with abnormalities gait and mobility. Patient has had balance issue entire life but has progressively worse due to cerebral palsy . Patient most recently has seen PT for back pain. Patient seen DR recommended PT for balance issues. Patient has had falls but none recently ~ months ago. Denies paresthesia/tingling. Patient uses cane community distance not all the time but been using more often due to weather. Patient also uses cane for balance but also for back pain. Patient goals to improve balance and get stronger. SOCIAL: single. VOCATION: retired - Pain Bilateral Back Pain Intensity (Out of 10): 4 Pain Intensity Range: 10 - Objective POSTURE: mild forward posture. GAIT: reciprocal pattern unsteady lateral sway ,occasionally crosses midline with QC. STAIRS: one step at a time with rails. MMT: quads/hams 4/5,hip flexion 4-/5,hip abduction 3+/5 ,ankle 4/5. FLEXABLITY: hamstrings mild tight. - Balance/Special Test Scores Functional Gait Assessment Score: 12 % Disability: 60.0000 CATSIB Score (Max score 120 seconds): 80 Lower Extremity Functional Score: 38 - Goals Goal 1:: Patient to be I with balance program ex's Goal Time Frame: 4-6 Weeks Goal 2:: Patient to improve CATSIB by 5-10 points to decrease risk of falls Goal Time Frame: 4-6 Weeks Goal 3:: Patient to improve functional gait assessment score by 5-10 points to improve balance and risk of falls Goal Time Frame: 4-6 Weeks Goal 4:: Patient to improve LFES score by 5-10 points to improve gait and QOL Goal Time Frame: 4-6 Weeks Goal 5:: Patient to increase strength bilateral hips 4/5 hip flexion and abd 3+/5 to improve gait - Rehabilitation Potential Physical Therapy Diagnosis: This patient has balance deficits with decrease CATSIB ,functional gait assessment ,weakness and risk for falls thus benefit from skilled PT Rehabilitation Potential: Good - Anticipated Interventions Patient/Client Instruction: Educate patient on: Condition, Plan of Care For the Purpose of:: To decrease pain, To increase ROM, To improve muscle performance and motor function, To improve ability to perform ADL's, To increase tolerance to activity/condition/position, To improve performance and independence with ADL's, To improve ability of physical actions for home/community/work/leisure, To improve health of tissue, To decrease soft tissue restriction, To increase flexibility/ROM, To improve endurance, To improve balance Therapeutic Exercise to Include: Strength training, Endurance training, Balance training, Coordination, Flexibilty training, Gait and locomotor training, Active ROM For the Purpose of:: To decrease pain, To increase ROM, To improve muscle performance and motor function, To improve ability to perform ADL's, To increase tolerance to activity/condition/position, To improve ability of physical actions for home/community/work/leisure, To improve gait and locomotor functions, To improve endurance, To improve balance Thank you for the opportunity to evaluate your patient. For Medicare and Medicare HMO plans, please review the plan of care and approve it. It will need to be FAXED BACK to us at [phone] for Medicare purposes. For Medicare only, by signing this I certify the plan of care. Please let me know if there are questions or concerns regarding this plan of care. Physician Signature: Date:
--- NOTE | 2021-08-08 15:31 | HP.PTREVAL ---
Dr. Aidan Hall MD, It has been my pleasure to treat ARIANA CHRISTIAN over the last 10 visits for OTHER ABNORMATIIES OF GAIT AND MOBILITY. Please see the progress note below for an update on the physical therapy plan of care! Subjective: Patient stated fell x2 more mechanical fall .. outside on grass turned quickly Objective/Function: POSTURE: mild forward. GAIT: unsteady gait with QC increase ANN MARIE and decrease step length. MMT: quad/hams 4/5,hip flexion 4-/5 Plan Plan: CONT WITH POC 2XWEEK. PT INTERVETIONS PRORESSIVE BALANCE PROGRAM,ENDUARNCE PROGRAM AND STRENGTHENING Balance/Gait/Functional tests - Balance/Special Test Scores Functional Gait Assessment Score: 13 % Disability: 56.6700 CATSIB Score (Max score 120 seconds): 80 Lower Extremity Functional Score: 38 Goals Goal 1:: Patient to be I with balance program ex's Goal Time Frame: 4-6 Weeks Goal Progress: Progressing Goal 2:: Patient to improve CATSIB by 5-10 points to decrease risk of falls Goal Time Frame: 4-6 Weeks Goal Progress: Progressing Goal 3:: Patient to improve functional gait assessment score by 5-10 points to improve balance and risk of falls Goal Time Frame: 4-6 Weeks Goal Progress: Progressing Goal 4:: Patient to improve LFES score by 5-10 points to improve gait and QOL Goal Time Frame: 4-6 Weeks Goal Progress: Progressing Goal 5:: Patient to increase strength bilateral hips 4/5 hip flexion and abd 3+/5 to improve gait Goal Progress: Goal Met Anticipated Interventions Patient/Client Instruction: Educate patient on: Condition, Plan of Care For the Purpose of:: To decrease pain, To increase ROM, To improve muscle performance and motor function, To improve ability to perform ADL's, To increase tolerance to activity/condition/position, To improve performance and independence with ADL's, To improve ability of physical actions for home/community/work/leisure, To improve health of tissue, To decrease soft tissue restriction, To increase flexibility/ROM, To improve endurance, To improve balance Therapeutic Exercise to Include: Strength training, Endurance training, Balance training, Coordination, Flexibilty training, Gait and locomotor training, Active ROM For the Purpose of:: To decrease pain, To increase ROM, To improve muscle performance and motor function, To improve ability to perform ADL's, To increase tolerance to activity/condition/position, To improve ability of physical actions for home/community/work/leisure, To improve gait and locomotor functions, To improve endurance, To improve balance Please do not hesitate to contact me at [phone] by phone or if you have questions or concerns regarding this new plan of care! Sincerely, Seven Juarez, PT, Cert MDT, OCS
--- NOTE | 2021-11-29 13:13 | HP.PTDCSUM ---
It has been my pleasure to treat ARIANA CHRISTIAN referred by Dr. Aidan Hall MD, with the diagnosis of OTHER ABNORMATIIES OF GAIT AND MOBILITY for a total of 17 visit(s). Discharge Date: Please see the following information for a summary of their discharge status. Subjective: Patient states had complication from sugery Bilateral Back Pain Intensity (Out of 10): 0 % Improvement: 50 Objective/Function: POSTURE: WFL. GAIT: ataxia gait pattern with cane. BALANCE: fair+. MMT: BLE 4/5 QUADS/HAMS ,HIP FLEXION 4-/5 Goal 1:: Patient to be I with balance program ex's Goal Progress: Progressing Goal 2:: Patient to improve CATSIB by 5-10 points to decrease risk of falls Goal Progress: Progressing Goal 3:: Patient to improve functional gait assessment score by 5-10 points to improve balance and risk of falls Goal Progress: Progressing Goal 4:: Patient to improve LFES score by 5-10 points to improve gait and QOL Goal Progress: Progressing Goal 5:: Patient to increase strength bilateral hips 4/5 hip flexion and abd 3+/5 to improve gait Goal Progress: Goal Met Plan: d/c to hep If there are questions or concerns regarding this patient's physical therapy, please feel free to call me at [phone]. Thank you for the referral of this patient. Sincerely, Seven Juarez, PT, Cert MDT, OCS Balance/Gait/Functional tests - Balance/Special Test Scores Functional Gait Assessment Score: 13 % Disability: 56.6700 CATSIB Score (Max score 120 seconds): 100 Lower Extremity Functional Score: 49
== END 2021-09-11 19:00 | disposition home or self-care (01) ==
LOC: PT 15:00
PROVIDERS: PCP Internal Medicine; Referring Provider Internal Medicine; Visit Provider Internal Medicine
DX: R26.89 Other abnormalities of gait and mobility (principal)
CPT/HCPCS: 97110; 97162; J2405

== ENCOUNTER → 2022-03-13 | Outpatient (CLI) | payer MEDICARE, MEDICAID, SELFPAY ==
--- NOTE | 2022-03-13 13:01 | US_ITS ---
STUDY: ULTRASOUND OF THE FEMALE PELVIS - COMPLETE REASON FOR EXAM: Female, 72 years old. ABN BLEEDI LMP: TECHNIQUE: Transabdominal TECHNICAL QUALITY: Adequate. COMPARISON: None. FINDINGS: The uterus is anteverted and is in a midline position. The uterus measures 6.4 x 4.1 x 2.4 cm. Normal uterine cervix. The endometrium measures 2.8 mm in thickness, and is hyperechoic. There is no demonstrated endometrial mass. There is no demonstrated myometrial mass. I.U.D. - The patient does not have an I.U.D. Normal ovaries are not visualized. There is no adnexal mass. There is no fluid in the cul-de-sac. The pre void volume of the bladder was 211 ml. US/Pelvic (Non ) IMPRESSION: Nonvisualization of the ovaries but no evidence for adnexal mass No significant abnormalities Electronically Signed: Brian Santa MD at 21:15 EDT ,
== END | disposition home or self-care (01) ==
LOC: US 12:59
PROVIDERS: PCP Internal Medicine; Referring Provider Urology; Visit Provider Urology
DX: N93.9 Abnormal uterine and vaginal bleeding, unspecified (principal)
CPT/HCPCS: 76856

== ENCOUNTER 2022-03-29 07:52 | Day surgery (SDC) | payer MEDICARE, MEDICAID, SELFPAY ==
[2022-03-29] VITALS (7 sets, daily range): BP systolic 91–137; BP diastolic 55–82; PULSE 88–97; RESP 16; TEMP 36.6–37.3; O2SAT 94–98; BMI 27.7
[2022-03-29 08:44] LABS: Hematocrit 38.3 % (37-47); Hemoglobin 12.7 g/dL (12.0-15.0); Mean Corp Hgb Conc 33.2 g/dL (32-36); Mean Corpuscular Hgb 27.3 pg (27.0-32.0); Mean Corpuscular Volume 82.4 fL (81-99); Mean Platelet Vol. 9.5 fl (6.2-12.0); Platelet Count 201 K/mm3 (150-450); RBC Distribution Width SD 41.7 fl (35.1-43.9); Red Blood Count 4.65 M/mm3 (4.2-5.4); White Blood Count 4.5 K/mm3 (4.4-11.0)
[2022-03-29] MEDS: Lactated Ringers 1,000 ML 15 ML IV (08:46)
[2022-03-29 09:08] LABS: Anion Gap 4 (5-15); BUN 19 mg/dL (7-18); BUN/Creat Ratio 23.8 RATIO (10-20); Calcium,Total 8.6 mg/dL (8.5-10.1); Chloride 110 mmol/L (98-107); EST Glomerular Filtration Rate 75 mL/min (>60); Est Glom Filt Rate - Afr Amer 91 mL/min (>60); Estimated Creatinine Clearance 54.13 ml/min; Glucose 107 mg/dL (74-106); Potassium 3.8 mmol/L (3.5-5.1); Sodium Level 140 mmol/L (136-145)
--- NOTE | 2022-03-29 09:21 | PCM.OPRPT ---
Report of Operation Date of Procedure: 03/29/22 Pre-Operative Diagnosis: Bladder mass, recurrent urinary tract infection Post-Operative Diagnosis: Same Surgery/Procedure Performed:: Cystoscopy, bladder biopsy with fulguration Surgeon: Tonya Mcdaniel Specimen's removed: Bladder biopsy Description of Procedure: The patient is a 72-year-old female with recurrent urinary tract infections. She had a cystoscopy and biopsy approximately 6 to 8 months ago revealing squamous metaplasia. On repeat cystoscopy in the office for continued issues there was a very small less than 5 mm area adjacent to the previous resection site that was mildly abnormal in appearance. After discussing the risk benefits and alternatives, we both decided to proceed with removal of this area and cauterization for further management. Informed consent was obtained. The patient was taken to the operating room and placed in a supine position on the operating room table. Anesthesia monitored the head, neck, airway, IV access and vital signs throughout the case. Once anesthesia was appropriate ministered, the patient was placed into dorsolithotomy position was prepped and draped in usual sterile fashion. A cystourethroscopy was performed through the urethra under direct visualization. Only the area on the trigone previously identified in the office was seen today. The remainder of the bladder was found to be without evidence of mass. At this time the biopsy forceps were used to remove the area of concern in the surrounding areas were cauterized for tissue treatment. Once hemostasis was obtained, the bladder was emptied and the case was terminated. The patient was awakened and taken to the recovery room in good condition. There were no complications during this procedure. Grafts/Implants Used: None Complications None Admit VTE Documentation VTE Present on Admission: Yes VTE Mechan Device Prophylaxis: SCD's VTE Pharm Prophylaxis ordered?: No Reason prophylaxis not ordered:: Treatment Not Indicated
--- NOTE | 2022-03-29 09:23 | DCINST_ITS ---
Discharge Instructions Diet Discharge Diet: No restrictions Activity Discharge Activity: Return to Normal Activity Dressing / Incision Call your doctor if you observe: Fever of 101 or Higher, Inability to urinate and Inability to have a bowel movement Follow Up Care Please Follow Up With: Tonya Mcdaniel MD When: Call the office for appointment to be seen next week Test Results: Test results from this visit will be discussed in further detail at your follow- up appointment, if applicable. Discharge Plan Admission Attending Provider: Tonya Mcdaniel Primary Care Provider: Aidan Hall Discharge Orders/Prescriptions Prescriptions: New acetaminophen-codeine [acetaminophen-codeine] 300-30 mg tablet 1 - 2 tab PO Q6H PRN PRN (Reason: Pain Score 6-10/10) 3 Days Qty: 10 0RF Continued esomeprazole magnesium [Nexium] 20 mg capsule,delayed release(DR/EC) 20 mg PO DAILY (DME) Lift Chair See Rx Instructions .Route .MEDSUPPLY Qty: 1 0RF Rx Instructions: As directed cholecalciferol (vitamin D3) 25 mcg (1,000 unit) capsule 25 mcg PO DAILY calcium 600 mg Capsule 1,200 mg PO DAILY docusate sodium 100 mg Tablet 100 mg PO BID Probiotic 10 billion cell Capsule 10,000 mmu cells PO DAILY Gemtesa 75 mg Tablet 75 mg PO QHS buspirone 5 mg tablet 5 mg PO BID albuterol sulfate [ProAir HFA] 90 mcg/actuation HFA aerosol inhaler 2 inh INHALATION Q6H PRN (Reason: shortness of breath or wheezing) Qty: 8.5 3RF Symbicort 80-4.5 mcg/actuation HFA aerosol inhaler 2 puff INHALATION BID Qty: 10.2 3RF fluoxetine 40 mg capsule 40 mg PO DAILY 30 Days Qty: 90 3RF montelukast [Singulair] 10 mg tablet 10 mg PO DAILY Qty: 90 3RF baclofen 10 mg tablet 10 mg PO BID PRN (Reason: back pain) Qty: 60 1RF hydrochlorothiazide 25 mg tablet 25 mg PO QAM Qty: 90 3RF potassium chloride 20 mEq tablet extended release 20 meq PO DAILY Qty: 90 3RF amlodipine 5 mg tablet 5 mg PO DAILY Qty: 90 1RF Prolia 60 mg/mL syringe 60 mg SC [id number] Qty: 1 1RF Referrals / Follow Up: Aidan Hall MD [Primary Care Provider] - Disposition Disposition (needs filled in before D/C Order can be placed): Home, Self Care
--- NOTE | 2022-03-29 09:30 | BLA_PTH ---
PATIENT: ARIANA CHRISTIAN LOC: [facility] – [place] U#:[id number] AGE/SX: 72/F ROOM: RE03/29/[address]: Dr. Tonya Mcdaniel MD : 1950 BED: DIS: 03/29/2022 SPEC #: [id number] RECD: 03/29/22 11:20 STATUS: [place] #: [id number] BAILEY: 03/29/22 09:[address]: Tonya Mcdaniel DEPT: SURGICAL PATHOLOGY RECD BY: Juanita Diaz ENTERED: 03/29/22 11:46 SP TYPE: BLADDER BX OTHR DR: Dr. Aidan Hall MD Tissues: Urinary bladder, NOS Procedures: Surgery Specimen Level IV HEADER OPERATION: Cystoscopy, bladder biopsy with fulguration PRE-OP DIAGNOSIS: Squamous metaplasia TISSUE SUBMITTED: Small bladder mass MICROSCOPIC DIAGNOSIS Urinary bladder mass, biopsy: Mild hyperplastic urothelium. Mild chronic cystitis. No evidence of malignancy. AM:alo 03/30/2022 COMMENT Squamoid epithelium comprises the majority of the epithelium in the biopsy. Clinical correlation is suggested. MICROSCOPIC DESCRIPTION Slides are reviewed. GROSS DESCRIPTION Received in fixative is one container labeled with the patient's name and designated small bladder mass. The specimen consists of two irregular fragments of light muro soft tissue that in aggregate measure 0.2 x 0.1 x <0.1 cm. The specimen is totally submitted in one cassette. / AM:alo 03/29/2022 TC:3 CPT: 73925
[2022-03-29] MEDS: Cefazolin 2 GM in 0.9% Normal Saline 100 ML IV (09:50)
== END 2022-03-29 11:19 | disposition home or self-care (01) ==
LOC: SDC 07:53 → AC 07:55
PROVIDERS: Anesthesiology; PCP Internal Medicine; Referring Provider Urology; Visit Provider Urology
PROC: 0TBB8ZX Excision of Bladder, Via Natural or Artificial Opening Endoscopic, Diagnostic (ICD-10-PCS; CPT 52204; principal; 2022-03-29 09:20)
DX: N32.89 Other specified disorders of bladder (principal); G80.9 Cerebral palsy, unspecified; N30.20 Other chronic cystitis without hematuria; N39.46 Mixed incontinence; N39.44 Nocturnal enuresis; I10 Essential (primary) hypertension; J45.909 Unspecified asthma, uncomplicated; E78.5 Hyperlipidemia, unspecified; F32.A Depression, unspecified; F41.9 Anxiety disorder, unspecified; Z79.51 Long term (current) use of inhaled steroids; Z79.899 Other long term (current) drug therapy
CPT/HCPCS: 52204; 00910; 80048; 85027; 88305; J7120; J2405

== ENCOUNTER 2022-09-13 13:00 | Outpatient (RCR) | payer MEDICARE, MEDICAID, SELFPAY ==
--- NOTE | 2022-04-09 14:44 | HP.PTEVAL_ITS ---
Patient's Visit Information ARIANA CHRISTIAN is a 72 year old F referred to Physical Therapy by Dr. Tonya Mcdaniel MD with a diagnosis of MIXED INCONTINENCE. Date of Evaluation: 04/09/22 Physical Therapist: Sapna Andrade PT, Cert MDT - Visit Plan Frequency: 1x/Week Duration: 8-10 WKS Plan: MANUAL PF THERAPY FOR STRENGTHENING, LENGTHENING/RELAXATION AND ENDURANCE TRAINING. URINARY RETENTION AND FREQUENCY EDUCATION. HEALTHY BLADDER HABBIT EDUCATION. TRAINING IN COORDINATION OF PELVIC FLOOR MUSCULATURE WITH HIP AND CORE (TRANSVERSE ABDOMINUS) MUSCULATURE. POSTURE CORRECTION/STRENGTHENING. CORE STRENGTHENING. LOVE LE ROM, STRETCHING AND STRENGTHENING. TRAINING IN ABDOMINAL CAVITY PRESSURE MGMT WITH ADL'S. - Subjective Work/Leisure: RETIRED. Present symptoms: I HAVE A DROPPED BLADDER AND I AM TIRED OF PEEING THE BED. WEARING ADULT DIAPERS FOR ABOUT 4 YEARS NOW. WEARING AVERAGE OF 4 DIAPERS A DAY. PATIENT REPORTS THE LEAST LITTLE THING THAT MAKES HER JUMP CAUSES LEAKING. SHE REPORTS SOMETIMES HER LEAKING IS A LITTLE BIT AND SOMETIMES A LOT. Present since: YEARS. Pain Scale: PATIENT DENIES PAIN. Is it getting better, worse or staying the same: PATIENT REPORTS HER INCONTINENCE IS WORSENING. Commenced as a result of: PATIENT RELATES ONSET OF INCONTINENCE TO HEAVY LIFTING TO CARE FOR ILL . Symptoms at onset: URINARY LEAKING WHEN RAINING AND WITH COUGHING AND SNEEZING. Worse: ALWAYS WORSE IN THE MORNING UPON RISING - CAN'T MAKE IT TO THE BATHROOM IN TIME AND SOMETIMES CAN'T EVEN GET OUT OF BED IN TIME. WHEN STARTLED. COUGHING, SNEEZING, WHEN IT RAINS. SOMETIMES EVEN WHEN I TURN THE FACET ON. Better: GEMTESSA. Disturbed sleep: YES - AVG 2-3 TIMES A NIGHT GETTING UP TO URINATE. Previous history/Previous treatment: I HAD TWO GROWTHS REMOVED FROM THE BLADDER (BENIGN) IN THE LAST YEAR. THE LAST ONE WAS REMOVED LAST Saturday03/29/[address] MCDANIEL. NO PRIOR PELVIC OR INCONTINENCE PHYSICAL THERAPY. PATIENT REPORTS SHE TRIED DIATARY CHANGES WITH THE HELP OF DR. MCDANIEL ABOUT A YEAR AGO BUT DIDN'T HELP. Gait: USES A QUAD CANE. HAS HAD PT FOR BALANCE. USES A QUAD CANE. NO RECENT FALLS. Bowel Dysfunction: CONSTIPATION THAT PATIENT RELATES TO MEDICATION SIDE EFFECTS. TAKES A ALLIE SOFENER. Accidents: NO. Unexplained weight loss: NO. Imaging: NONE RECENT. 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 - Objective Sitting/Standing Posture: POOR. REDUCED LUMBAR LORDOSIS. NO RELEVANT LATERAL SHIFT. Active Correction of posture: WORSE - PRODUCES LBP. Other Observations: INDEP GAIT INTO PT WITH QUAD CANE. LOVE UE DEPENDENT TO TRANSFER FROM SIT TO STAND. Sensory deficit: LOVE LE LIGHT TOUCH SENSATION GROSSLY INTACT AND SYMMETRICAL. ROM deficit: TIGHT LOVE HIP FLEXORS, ROTATORS, ABDUCTORS AND ADDUCTORS. Motor deficit: LOVE LE STRENGTH GROSSLY 4-5/5 WITH MMT'ING. Dural Signs: NEGATIVE LOVE LE'S. Lumbar mvmt loss: flex - MIN. ext - MADAN. R SG - MADAN. L SG - MADAN. PATIENT C/O LBP WITH LUMBAR ROM TESTING ALL PLANES BUT DOES NOT REMAIN WORSE A RESULT. Core strength: POOR. Palpation: NO ACUTE LOW BACK, HIP OR PELVIC PAIN WITH PALPATION. PATIENT AND THERAPIST AGREE ON HOLDING INTERNAL PELVIC FLOOR MUSCLE STRENGTH AND ENDURANCE TESTING TODAY DUE TO RECENT SUREGERY. FOLLOW UP PENDING WITH DR. MCDANIEL TOMORROW. PATIENT REPORTS UNDERSTANDING OF WHAT CONTRACTION OF PELVIC FLOOR IS WITH KEGEL AND FEELS VERY WEAK. INSTRUCTION GIVEN HOW TO TEST PELVIC FLOOR DURING MICTURITION. COMPENSATION SEEN IN ABDOMEN AND HIPS/GLUTS WITH KEGEL ATTEMPS IN CLINIC TODAY. TREATMENT: INITIATION OF HEP WITH INSTRUCTION IN PROPER DIAPHRAGMATIC BREATHING AND QUICK FLICK KEGEL EX'S. WRITTEN HEP INSTRUCTIONS PROVIDED. REINFORCEMENT NEEDED. - Goals Goal 1:: DECREASE URINARY LEAKAGE EPISODES TO 2 OR LESS PER DAY Goal Time Frame: 8-12 Weeks Goal 2:: PATIENT WILL SUCCESSFULLY DELAY VOIDING FOR 5 MINUTES WHEN URGENCY OCCURS Goal Time Frame: 4-6 Weeks Goal 3:: PATIENT WILL HAVE INCREASED PELVIC FLOOR MUSCLE STRENGTH GRADE TO 4/5 Goal Time Frame: 6-8 Weeks Goal 4:: PATIENT WILL DEMONSTRATE 5 CONSISTENT AND CONSECUTIVE 10 SECOND PELVIC FLOOR MUSCLE CONTRACTIONS TO DEMONSTRATE IMPROVED PELVIC FLOOR ENDURANCE. Goal Time Frame: 8-12 Weeks Goal 5:: NORMALIZE VOIDING FREQUENCY Goal Time Frame: 6-8 Weeks Goal 6:: PATIENT WILL BE INDEP WITH A HEP/HOME INSTRUCTIONS FOR CONTINUED IMPROVEMENT ONCE FORMAL PHYSICAL THERAPY CONCLUDES. Goal Time Frame: 8-12 Weeks - Anticipated Interventions Patient/Client Instruction: Educate patient on: Condition, Plan of Care, Risk Factors For the Purpose of:: To improve self management Therapeutic Exercise to Include: Strength training, Endurance training, Postural training, Flexibilty training, Neuromotor development For the Purpose of:: To improve muscle performance and motor function, To increase tolerance to activity/condition/position, To improve ability of physical actions for home/community/work/leisure Thank you for the opportunity to evaluate your patient. For Medicare and Medicare HMO plans, please review the plan of care and approve it. It will need to be FAXED BACK to us at [phone] for Medicare purposes. For Medicare only, by signing this I certify the plan of care. Please let me know if there are questions or concerns regarding this plan of care. Physician Signature: Date:
--- NOTE | 2022-09-13 13:29 | HP.PTDCSUM ---
It has been my pleasure to treat ARIANA CHRISTIAN referred by Dr. Tonya Mcdaniel MD, with the diagnosis of MIXED INCONTINENCE for a total of 14 visit(s). Discharge Date: Please see the following information for a summary of their discharge status. Subjective: PATIENT REPORTS SHE IS BACK TO JUST WEARING A PAD DURING THE DAY GENERALLY UNLESS IT IS REALLY COLD OUT. REPORTS COMPLIANCE WITH HEP. FINALLY FOUND A DOOR TO USE FOR STANDING TBAND EX'S. WENT FOR A LONG WALK RECENTLY THEN STARTED HAVING SOME L THIGH PAIN BUT GETTING BETTER. R HIP Pain Intensity (Out of 10): 3 LOW BACK Pain Intensity (Out of 10): 2 LEG SPASMS Pain Intensity (Out of 10): 9 L LATERAL THIGH Pain Intensity (Out of 10): 2 % Improvement: 95 Objective/Function: PATIENT DEMONSTRATED/COMMUNICATED A GOOD UNDERSTANDING OF ALL INSTRUCTIONS AFTER GIVEN. PATIENT IS INDEP WITH A HEP AND APPROPRIATE FOR DISCHARGE. PATIENT IS AGREEABLE. Goal 1:: DECREASE URINARY LEAKAGE EPISODES TO 2 OR LESS PER DAY Goal Progress: Progressing Goal 2:: PATIENT WILL SUCCESSFULLY DELAY VOIDING FOR 5 MINUTES WHEN URGENCY OCCURS Goal Progress: Progressing Goal 3:: PATIENT WILL HAVE INCREASED PELVIC FLOOR MUSCLE STRENGTH GRADE TO 4/5 Goal 4:: PATIENT WILL DEMONSTRATE 5 CONSISTENT AND CONSECUTIVE 10 SECOND PELVIC FLOOR MUSCLE CONTRACTIONS TO DEMONSTRATE IMPROVED PELVIC FLOOR ENDURANCE. Goal Progress: MET SUBJECTIVELY Goal 5:: NORMALIZE VOIDING FREQUENCY Goal Progress: Progressing Goal 6:: PATIENT WILL BE INDEP WITH A HEP/HOME INSTRUCTIONS FOR CONTINUED IMPROVEMENT ONCE FORMAL PHYSICAL THERAPY CONCLUDES. Goal Progress: Goal Met Plan: D/C TO INDEP HEP If there are questions or concerns regarding this patient's physical therapy, please feel free to call me at [phone]. Thank you for the referral of this patient. Sincerely, Sapna Andrade, PT, Cert MDT
== END 2022-09-13 15:07 | disposition home or self-care (01) ==
LOC: PT 13:00
PROVIDERS: PCP Internal Medicine; Referring Provider Urology; Visit Provider Urology
DX: N39.46 Mixed incontinence (principal)
CPT/HCPCS: 97110; 97162; 97530

== ENCOUNTER → 2022-12-12 | Outpatient (CLI) | payer MEDICARE, MEDICAID, SELFPAY ==
[2022-12-12 12:23] LABS: Absolute Lymphocyte Count 0.72 X10^3/uL (0.83-4.51); Absolute Neutrophil Count 3.4 X10^3/uL (2.0-7.7); Basophil# 0.04 X10^3/uL; Basophil% 0.8 % (0-1); Eosinophil# 0.06 X10^3/uL; Eosinophils% 1.3 % (0-5); Hematocrit 38.6 % (37-47); Hemoglobin 12.6 g/dL (12.0-15.0); Lymphocyte # 0.72 X10^3/ul (0.83-4.51); Lymphocyte % 15.2 % (19-41); Mean Corp Hgb Conc 32.6 g/dL (32-36); Mean Corpuscular Hgb 26.6 pg (27.0-32.0); Mean Corpuscular Volume 81.6 fL (81-99); Mean Platelet Vol. 9.9 fl (6.2-12.0); Monocyte# 0.45 X10^3/uL; Monocyte% 9.5 % (0-10); NRBC Flagged by Analyzer 0 % (0-5); Neutrophil # 3.44 X10^3/uL (2.7-7.7); Neutrophil % 72.8 % (47-70); Platelet Count 248 K/mm3 (150-450); RBC Distribution Width CV 13.8 % (11.6-14.6); RBC Distribution Width SD 40.5 fl (35.1-43.9); Red Blood Count 4.73 M/mm3 (4.2-5.4); White Blood Count 4.7 K/mm3 (4.4-11.0)
[2022-12-12 12:40] LABS: Vitamin D,25 Hydroxy 79.8 ng/mL
[2022-12-12 12:45] LABS: ALB/GLOB Ratio 0.9 RATIO (0.9-2.4); AST(SGOT) 18 U/L (15-37); Alanine Aminotransfer ALT/SGPT 23 U/L (13-56); Albumin, Serum 3.6 g/dL (3.2-5.0); Alkaline Phosphatase 100 U/L (45-117); Anion Gap 6 (5-15); BUN 17 mg/dL (7-18); BUN/Creat Ratio 17.6 RATIO (10-20); Calcium,Total 9.2 mg/dL (8.5-10.1); Chloride 103 mmol/L (98-107); Cholesterol 192 mg/dL (200); Creatinine, Serum 0.96 mg/dL (0.55-1.02); EST Glomerular Filtration Rate 61 mL/min (>60); Est Glom Filt Rate - Afr Amer 73 mL/min (>60); Globulin 3.8 g/dL (2.2-4.2); Glucose 89 mg/dL (74-106); High Density Lipoprotein 69 mg/dL; Potassium 3.4 mmol/L (3.5-5.1); Protein, Total 7.4 g/dL (6.4-8.2); Sodium Level 138 mmol/L (136-145); Triglycerides 61 mg/dL; Very Low Density Lipoprotein 12 mg/dL (5-40)
== END | disposition home or self-care (01) ==
LOC: BIMLAB 10:39
PROVIDERS: PCP Internal Medicine; Visit Provider Internal Medicine
DX: I10 Essential (primary) hypertension (principal); M81.0 Age-related osteoporosis without current pathological fracture
CPT/HCPCS: 36415; 80053; 80061; 82306; 85025

== ENCOUNTER 2023-02-05 14:30 | Outpatient (RCR) | payer MEDICARE, MEDICAID, SELFPAY ==
--- NOTE | 2022-12-18 15:57 | HP.PTEVAL ---
Patient's Visit Information Visit Information Visit Information: ARIANA CHRISTIAN is a 72 year old F referred to Physical Therapy by Dr. Aidan Hall MD with a diagnosis of CP, balance disordeer. Date of Evaluation: 12/18/22 Physical Therapist: Ermias Sarah, DPT, OCS, CSCS Visit Plan Frequency: 2x /Week Duration: 4-6 Weeks Plan: 2x/week for 4-6 weeks for 1. ankle strength 2. weight shifts 3. hip/core/general strength 4. vestibular balance challenges all progressed to I as safety allows and given pics, list for HEP I gave gastroc and HS stretch today Subjective Subjective: Fallen a couple times in last couple months, one time on sidewalk which was uneven and yanking on cane. The other time was chasing a cat and reached for it and then tumbled over. Uses a cane to get around and has for 4 years. No neropathy, no spinning. Has a rollator and uses it outside of trailer. 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 No big injuries from the falls. Does have chronic intermittent back pain. Sleep is OK. Not employed. [employer] ADLS are getting done, Helps cook and dtrs help her. steps to enter trailer with a lift. Walks daily with dtr a couple miles with cane. Hobbies: crocheting Objective Objective: Ambuklates mod I with SBQC in R UE, poor weight shift, poor push off, very little hip movement. Trasnfers chair and bed I. Steps Reciprocal up but much weaker on R LE(CP). Descends with rail using L only. UE AROM WNL LE AROM WNL, HS tights B at -40 90/90 test adn gastrocs at 0 DF PROM. coordination to reciprocal toe and heel tap is poor. sensation LE WNL to gross light touch B. Strength ankles 3/5, knees 4- and hips 3+/5. reflexes 1/3 patella adn achilles Balance/Special Test Scores Functional Gait Assessment Score: 20 % Disability: 33.3400 CATSIB Score (Max score 120 seconds): 80 Lower Extremity Functional Score: 29 Goals Goal 1:: I appropriate HEP to minimize fallr isk Goal Time Frame: 4-6 Weeks Goal 2:: FGA for safety. Goal Time Frame: 4-6 Weeks Goal 3:: LEFS 49 Goal Time Frame: 4-6 Weeks Goal 4:: Pt feel 50% more steady with adls Goal Time Frame: 4-6 Weeks Rehabilitation Potential Physical Therapy Diagnosis: weakness ankles, tightness posterior legs, poor weight shifting and vestibualr balance weakness making mobility challenging and poor safety Rehabilitation Potential: Fair Anticipated Interventions Patient/Client Instruction: Educate patient on: Condition and Plan of Care For the Purpose of:: To improve nutrient delivery to tissue, To improve muscle performance and motor function, To increase tolerance to activity/condition/position, To improve ability of physical actions for home/community/work/leisure, To improve gait and locomotor functions and To improve safety with gait Therapeutic Exercise to Include: Strength training, Balance training, Flexibilty training and Gait and locomotor training For the Purpose of:: To improve muscle performance and motor function, To increase tolerance to activity/condition/position, To improve ability of physical actions for home/community/work/leisure, To improve gait and locomotor functions, To increase flexibility/ROM, To improve safety with gait and To improve safety Text: Thank you for the opportunity to evaluate your patient. For Medicare and Medicare HMO plans, please review the plan of care and approve it. It will need to be FAXED BACK to us at [phone] for Medicare purposes. For Medicare only, by signing this I certify the plan of care. Please let me know if there are questions or concerns regarding this plan of care. Physician Signature: Date:
--- NOTE | 2023-02-05 14:54 | HP.PTREVAL_ITS ---
Re-Evaluation Intro: Dr. Aidan Hall MD, It has been my pleasure to treat ARIANA CHRISTIAN over the last 12 visits for CP, balance disorder. Please see the progress note below for an update on the physical therapy plan of care! Subjective Subjective: A little better. Not losing balance. The dog does not knock her over. Doing exercises at home : HR, marching, standing on pillow. Objective Objective/Function: Walks in with LBQC I having come from walking at the park with other people. transfer chair I. FGA is +1 and feeling better subjectively. Plan Plan Plan: f/u 3-4 weeks to check FGA, mod CTSIB, progress ex if needed and d/c if doing well . pt will be visiting doctor tomorrow and requestin hurrycane prescription which straight cane is appropriate for patient(she has LBQC) Balance/Gait/Functional tests Balance/Special Test Scores Functional Gait Assessment Score: 21 % Disability: 30.0000 CATSIB Score (Max score 120 seconds): 80 Lower Extremity Functional Score: 32 Goals Goals Goal 1:: I appropriate HEP to minimize fallr isk Goal Time Frame: 4-6 Weeks Goal Progress: Progressing Goal 2:: FGA for safety. Goal Time Frame: 4-6 Weeks Goal 3:: LEFS 49 Goal Time Frame: 4-6 Weeks Goal 4:: Pt feel 50% more steady with adls Goal Time Frame: 4-6 Weeks Anticipated Interventions Anticipated Interventions Patient/Client Instruction: Educate patient on: Condition and Plan of Care For the Purpose of:: To improve nutrient delivery to tissue, To improve muscle performance and motor function, To increase tolerance to activity/condition/position, To improve ability of physical actions for home/community/work/leisure, To improve gait and locomotor functions and To improve safety with gait Therapeutic Exercise to Include: Strength training, Balance training, Flexibilty training and Gait and locomotor training For the Purpose of:: To improve muscle performance and motor function, To increase tolerance to activity/condition/position, To improve ability of physica l actions for home/community/work/leisure, To improve gait and locomotor functions, To increase flexibility/ROM, To improve safety with gait and To improve safety Re-Evaluation Ending Re-evaluation ending: Please do not hesitate to contact me at [phone] by phone or if you have questions or concerns regarding this new plan of care! Sincerely, Ermias Sarah, DPT, OCS, CSCS
--- NOTE | 2023-04-16 10:35 | HP.PTDCNRP_ITS ---
Patient Information Patient Information: ARIANA CHRISTIAN was seen in my office for initial evaluation on 12/18/22. The following Plan of Care was established for this patient: POC Established Initial Frequency: 2x /Week Initial Duration: 4-6 Weeks Anticipated Interventions Patient/Client Instruction: Educate patient on: Condition and Plan of Care For the Purpose of:: To improve nutrient delivery to tissue, To improve muscle performance and motor function, To increase tolerance to activity/condition/position, To improve ability of physical actions for home/community/work/leisure, To improve gait and locomotor functions and To improve safety with gait Therapeutic Exercise to Include: Strength training, Balance training, Flexibilty training and Gait and locomotor training For the Purpose of:: To improve muscle performance and motor function, To increase tolerance to activity/condition/position, To improve ability of ph ysical actions for home/community/work/leisure, To improve gait and locomotor functions, To increase flexibility/ROM, To improve safety with gait and To improve safety Last Seen Last Seen: This patient was last seen in our office 02/05/23. Pertinent comments regarding their Physical therapy will appear below: Pt seen 12 visits of and 50% better. Was to f/u in 4 weeks but did not schedule or attend. At this point, it has been over 2 months and i will discontinue due to nonattendance. At this point I will be discontinuing this patient from physical therapy. I would be happy to see this patient again in the future if found appropriate by the physician. Thank you! Ermias Sarah, DPT, OCS, CSCS Balance/Gait/Functional tests Balance/Special Test Scores Functional Gait Assessment Score: 21 % Disability: 30.0000 CATSIB Score (Max score 120 seconds): 80 Lower Extremity Functional Score: 32
== END 2023-02-05 19:00 | disposition home or self-care (01) ==
LOC: PT 14:30
PROVIDERS: PCP Internal Medicine; Referring Provider Internal Medicine; Visit Provider Internal Medicine
DX: R26.89 Other abnormalities of gait and mobility (principal); Z86.69 Personal history of other diseases of the nervous system and sense organs
CPT/HCPCS: 97110; 97116; 97162; 97530

== ENCOUNTER → 2023-02-06 | Outpatient (CLI) | payer MEDICARE, MEDICAID, SELFPAY ==
[2023-02-06 13:03] LABS: Anion Gap 6 (5-15); BUN 24 mg/dL (7-18); BUN/Creat Ratio 28.2 RATIO (10-20); Calcium,Total 9.2 mg/dL (8.5-10.1); Chloride 104 mmol/L (98-107); Creatinine, Serum 0.85 mg/dL (0.55-1.02); EST Glomerular Filtration Rate 70 mL/min (>60); Est Glom Filt Rate - Afr Amer 85 mL/min (>60); Glucose 94 mg/dL (74-106); Potassium 3.5 mmol/L (3.5-5.1); Sodium Level 138 mmol/L (136-145)
== END | disposition home or self-care (01) ==
LOC: BIMLAB 10:24
PROVIDERS: PCP Internal Medicine; Visit Provider Internal Medicine
DX: I10 Essential (primary) hypertension (principal)
CPT/HCPCS: 36415; 80048

== ENCOUNTER 2023-02-28 07:44 | Day surgery (SDC) | payer MEDICARE, MEDICAID, SELFPAY ==
[2023-02-28] VITALS (7 sets, daily range): BP systolic 131–146; BP diastolic 74–84; PULSE 92–104; RESP 14–18; TEMP 36.2–37.2; O2SAT 90–99; BMI 24.7
[2023-02-28] MEDS: Lactated Ringers 1,000 ML 15 ML IV (08:26)
--- NOTE | 2023-02-28 09:15 | PCM.HP.BLA ---
History and Physical Date of Service: 01/11/23 MR#: [id number] Acct: [id number] Name: ARIANA AVENDAÑO Rep #: [id number] : 1950 Provider: Dr. Jose Potts MD Age/Sex: 72/F Location: [facility] Status: Signed Intake Vital Signs 12/12/2309:04 01/11/2310:16 Height 5 ft 3.5 in 5 ft 3 in Weight: 148 lb 148 lb 8 oz BMI 25.8 26.3 BP 138/70 H 124/70 H Blood Pressure Location Lt brachial Rt brachial Position Sitting Sitting Respiration 16 16 Pulse 98 87 Pulse Source Monitor Monitor Temp 98.9 F Temp Source Temporal Pulse Oximetry (%) 99 98 Oxygen Delivery Method room air Intake Visit Reasons: POSITIVE COLOGUARD Chief Complaint: positive cologuard Allergies erythromycin base Allergy (Unknown, Verified 01/11/23 10:18) UnknownPenicillins Allergy (Verified 01/11/23 10:18) Hives Medications esomeprazole magnesium 20 mg capsule,delayed release (Nexium) 20 mg PO DAILY 06/19/19 [History Confirmed 01/11/23] albuterol sulfate 90 mcg/actuation aerosol inhaler (ProAir HFA) 2 inh inhalation Q6H PRN shortness of breath or wheezing #8.5 grams 10/05/20 [Rx Confirmed 01/11/23] Lift Chair #1 ea 05/02/21 [Rx Confirmed 01/11/23] cholecalciferol (vitamin D3) 25 mcg (1,000 unit) capsule 25 mcg PO DAILY 06/06/21 [History Confirmed 01/11/23] Lactobacillus acidophilus 10 billion cell capsule (Probiotic) 10,000 mmu cells PO DAILY 07/24/21 [History Confirmed 01/11/23] budesonide-formoterol HFA 80 mcg-4.5 mcg/actuation aerosol inhaler (Symbicort) 2 puff inhalation BID #10.2 grams 07/25/21 [Rx Confirmed 01/11/23] potassium chloride 20 mEq tablet,extended release 20 meq PO DAILY #90 tabs 01/22/22 [Rx Confirmed 01/11/23] denosumab 60 mg/mL subcutaneous syringe (Prolia) 60 mg subcut [id number] #1 mL 02/14/22 [Rx Confirmed 01/11/23] vibegron 75 mg tablet (Gemtesa) 75 mg PO QHS 03/26/22 [History Confirmed 01/11/23] amlodipine 5 mg tablet 5 mg PO DAILY #90 tabs 08/10/22 [Rx Confirmed 01/11/23] fluoxetine 40 mg capsule See Rx Instructions .Route .COMPLEX #90 caps 08/10/22 [Rx Confirmed 01/11/23] montelukast 10 mg tablet (Singulair) 10 mg PO DAILY #90 tabs 08/10/22 [Rx Confirmed 01/11/23] baclofen 10 mg tablet See Rx Instructions .Route .COMPLEX #60 tabs 12/10/22 [Rx Confirmed 01/11/23] buspirone 7.5 mg tablet 7.5 mg PO TID 3 months #270 tabs 12/12/22 [Rx Confirmed 01/11/23] calcium 600 mg capsule 1,200 mg PO DAILY 12/12/22 [History Confirmed 01/11/23] docusate sodium 100 mg tablet 100 mg PO BID PRN 12/12/22 [History Confirmed 01/11/23] solifenacin 5 mg tablet 5 mg PO DAILY #90 tabs 12/12/22 [Rx Confirmed 01/11/23] hydrochlorothiazide 25 mg tablet See Rx Instructions .Route .COMPLEX #90 tabs 12/21/22 [Rx Confirmed 01/11/23] PFSH Medical History Acute bronchitis, unspecified Ambulates with cane Anxiety Anxiety and depression Arthritis Asthma Back pain Back problem Balance disorder Cataracts, bilateral Cerebral palsy Change in facial mole Debility Depression Difficulty chewing Gastric reflux Gross hematuria Health care maintenance Hearing problem History of cerebral palsy History of pain when walking HTN (hypertension) Hyperlipidemia Incontinence Low back pain Migraine headache Neoplasm of unspecified behavior of bladder Overactive bladder Positive colorectal cancer screening using Cologuard test Post-menopausal Seasonal allergies Shortness of breath on exertion URI (upper respiratory infection) Urinary tract infection with hematuria Walker as ambulation aid Wears glasses Surgical History H/O skin graft Hx of cystoscopy Hx of tooth extraction Family History Father Arthritis LeukemiaMother Hypertension CVA (cerebral vascular accident)Grandmother Breast cancer Social History Smoking Status: Never smoker alcohol intake: current alcohol intake frequency: a few times a month substance use type: does not use what type of physical activity do you participate in: other HPI HPI HPI: Patient is a 72-year-old female who presents for need to schedule diagnostic colonoscopy secondary to recently positive Cologuard testing. They are referred for surgical consultation from Dr. Hall. Patient has not had prior colonoscopy. Her daughter, who accompanies her, describes that her mother has been fearful of undergoing colonoscopy ever since her father had a colonoscopy in his 50s he had contracted C. difficile colitis which he ultimately succumbed to. She also relates that this was her mother's second Cologuard testing. They estimate the prior testing was 3 years ago and was negative. Patient has no personal history of inflammatory bowel disease or diverticulitis. They describe their bowel habits as frequently characterized by constipation. Although they have approximately 1 per day they state that sometimes this requires up to 30 minutes to pass a stool and there is some significant associated straining. They also confessed that they have noticed recent bleeding with dark red stools. She denies any symptoms of lightheadedness or dizziness. Beyond this constipation they have noted some diarrhea and vomiting. Patient's daughter again contributes to the history at this point and states that they had suspected possible food poisoning during these episodes, but had also noted a correlation with increasing her buspirone. Patient has no family history of colon cancer, inflammatory bowel disease or diverticulitis. However, patient's daughter states that she was diagnosed with acute pancreatitis but no cause was ever identified. The patient's weight is not stable and patient reports a weight loss of greater than 20 pounds over the last 1 year. She attributes this to increased activity and some positive diet changes. She has had some recent fatigue along with this weight change which she states has been most present in the last week and a half. The patient is not prescribed anticoagulants/blood thinners. Relevant prior abdominal surgical history includes: Not applicable Patient does have a significant history of GERD and reports that she has been on Nexium for the past 2 years. She reports that this medication. [] ROS General General: No weight change, appetite, fatigue, colon cancer, breast cancer or weakness HEENT HEENT: No difficulty swallowing, eye injury, eye surgery, swollen glands or hoarseness Endo Endocrine: No thyroid disease, diabetes mellitus, thyroid cancer, Hair loss, heat intolerance or cold intolerance Skin Skin: No rash or changing moles Breast Breast: No left breast lump, right breast lump, nipple discharge, breast pain, abnormal mammogram, abnormal US or breast enlargement Musc Musculoskeletal: No back problems, arthritis, rheumatoid arthritis, gout or joint pain Cardio Cardiovascular: No murmur, pacemaker, heart disease, atrial fibrillation, high blood pressure, heart attack, heart stent, palpitations, shortness of breat with exertion or chest pain Psych Psychiatric: Yes depression and anxiety; No hearing voices Resp Respiratory: No shortness of breath, No sleep apnea, No cough, No COPD, No asthma, No emphysema and No wheezing Gastro Gastrointestinal: No abdominal pain, Yes nausea or vomiting, No diarrhea, Yes constipation, Yes blood in stool, No acid reflux, No hemorrhoids, No ulcers, No gallbladder problem and No black,tarry stools Gabriel Hematologic: No blood thinners, No blood disorders, No bleeding, No anemia and No blood clots Neuro Neurologic: No system reviewed and no additional complaints, except as documented, No as per HPI, No abnormal gait, No abnormal hearing, No abnormal movements, No abnormal speech, No behavioral changes, No burning sensations, No confusion, No convulsions, No disequilibrium, No dizziness, No localized weakness, No frequent falls, No headache(s), No lack of coordination, No loss of vision, No memory loss, No numbness, No other visual disturbances, No radicular pain, No restless legs, No sensory deficit, No syncope, No tingling, No tremor(s), No weakness and No other Exam Const General: cooperative (Patient initially somewhat resistant to even basic questioning but warms ) Resp Effort & Inspection: normal respiratory effort GI Other: No scars, nondistended, soft, nontender to palpation x4 quadrants Assessment and Plan Assessment and Plan (1) Positive colorectal cancer screening using Cologuard test: Status: Acute Comment: This is a 72-year-old female, who appears to be at average risk for colon cancer based on history, but presents due to recently positive Cologuard testing after previous negative test. She has been reluctant to undergo endoscopic evaluation secondary to a complication her had with a colonoscopy that ultimately led to his untimely . I have described to Ms. Avendaño we take very seriously the sterilization of our scopes and this wrist should be minimal. I have shared with her that there is no good alternative to following up her positive testing and I would highly recommend proceeding with a colonoscopy. She expressed understanding of this information and has been encouraged by her daughter to proceed with the recommendation. I do not find any cause to pursue diagnostic EGD based on patient's limited experience of breakthrough reflux symptoms which she states occur no more frequently than once every couple of weeks. Plan: Plan will be to complete colonoscopy on first mutually agreeable date under local MAC. Patient will require 2-day prep given her history of constipation and this pre-procedure prep discussed and paper instructions provided. Patient is also made aware that she will need to have a m48/m60 tank driver with her the day of the procedure. I have examined the patient and the H&P has been reviewed. There are no clinical changes since date of exam. Patient confirms that she completed her prep successfully for today's procedure. She denies any further questions. We will proceed to the endoscopy suite for planned diagnostic colonoscopy after positive Cologuard.
--- NOTE | 2023-02-28 10:00 | OP.COLON_ITS ---
Patient Name: Jenny Avendaño Procedure Date: 02/28/2023 9:04 AM Date of : 1950 Age: 73 Procedure: Colonoscopy Indications: Positive Cologuard test Providers: Jose Potts MD Referring MD: Aidan Hall MD Medicines: See the Anesthesia note for documentation of the administered medications Patient Profile: Last Colonoscopy: none. The patient's first colonoscopy is today. Complications: No immediate complications. Estimated blood loss: None. Procedure: Pre-Anesthesia Assessment: - The heart rate, respiratory rate, oxygen saturations, blood pressure, adequacy of pulmonary ventilation, and response to care were monitored throughout the procedure. After I obtained informed consent, the scope was passed under direct vision. Throughout the procedure, the patient's blood pressure, pulse, and oxygen saturations were monitored continuously. The pediatric colonoscope was introduced through the anus and advanced to the cecum, identified by the appendiceal orifice, ileocecal valve and palpation. The colonoscopy was somewhat difficult due to a tortuous colon. Successful completion of the procedure was aided by changing the patient to a supine position. The patient tolerated the procedure fairly well. The quality of the bowel preparation was good. Anatomical landmarks were photographed. Scope In: 9:19:49 AM Scope Withdrawal Time 0 hours 8 minutes 34 seconds Scope Out: 9:53:24 AM Total Procedure Duration Time 0 hours 33 minutes 35 seconds Findings: A few small localized angioectasias without bleeding were found in the ascending colon. No biopsies or other specimens were collected for this exam. The exam was otherwise without abnormality on direct and retroflexion views. Impression: - A few non-bleeding colonic angioectasias. No specimens collected. - The examination was otherwise normal on direct and retroflexion views. Recommendation: - Discharge patient to home (via wheelchair). - Resume previous diet today. - Continue present medications. - No repeat colonoscopy due to current age (66 years or older). - Telephone my office for study results in 1 week. Procedure Code(s): --- Professional --- 50745, Colonoscopy, flexible; diagnostic, including collection of specimen(s) by brushing or washing, when performed (separate procedure) Diagnosis Code(s): --- Professional --- K55.20, Angiodysplasia of colon without hemorrhage R19.5, Other fecal abnormalities CPT copyright 2021 [employer]. All rights reserved. The codes documented in this report are preliminary and upon director clinical data review may be revised to meet current compliance requirements. Jose Potts MD 02/28/2023 10:00:19 AM This report has been signed electronically. Number of Addenda: 0 Note Initiated On: 02/28/2023 9:04 AM
--- NOTE | 2023-02-28 10:00 | OP.CCLET_ITS ---
02/28/2023 Aidan Hall MD [address] [place] [address] [place] [address] Re : Colonoscopy procedure for Jenny Avendaño Dear Dr. Hall This procedure was performed on February. My impressions and recommendations are as follows: Impressions : - A few non-bleeding colonic angioectasias. No specimens collected. - The examination was otherwise normal on direct and retroflexion views. Recommendations : - Discharge patient to home (via wheelchair). - Resume previous diet today. - Continue present medications. - No repeat colonoscopy due to current age (66 years or older). - Telephone my office for study results in 1 week. My findings are described in the full procedure note, which is enclosed. If I can be of further assistance, please feel free to contact me at Doctor phone number(s): , Work: . Sincerely, Jose Potts MD 02/28/2023 10:00:19 AM This report has been signed electronically.
== END 2023-02-28 10:42 | disposition home or self-care (01) ==
LOC: EN 07:45 → AC 07:46
PROVIDERS: PCP Internal Medicine; Referring Provider Internal Medicine; Visit Provider Surgery
PROC: 0DJD8ZZ Inspection of Lower Intestinal Tract, Via Natural or Artificial Opening Endoscopic (ICD-10-PCS; CPT 45378; principal; 2023-02-28 08:25)
DX: K55.20 Angiodysplasia of colon without hemorrhage (principal); G80.9 Cerebral palsy, unspecified; R19.5 Other fecal abnormalities; I10 Essential (primary) hypertension; E78.5 Hyperlipidemia, unspecified; K21.9 Gastro-esophageal reflux disease without esophagitis; F32.A Depression, unspecified; F41.9 Anxiety disorder, unspecified; Z79.899 Other long term (current) drug therapy; Z86.16 Personal history of COVID-19
CPT/HCPCS: 45378; J7120; J2405

== ENCOUNTER → 2023-08-07 | Outpatient (CLI) | payer MEDICARE, MEDICAID, SELFPAY ==
[2023-08-07 12:26] LABS: Absolute Lymphocyte Count 0.88 X10^3/uL (0.83-4.51); Absolute Neutrophil Count 3.5 X10^3/uL (2.0-7.7); Basophil# 0.03 X10^3/uL; Basophil% 0.6 % (0-1); Eosinophil# 0.04 X10^3/uL; Eosinophils% 0.8 % (0-5); Hematocrit 39.6 % (37-47); Hemoglobin 12.8 g/dL (12.0-15.0); Lymphocyte # 0.88 X10^3/ul (0.83-4.51); Lymphocyte % 18.3 % (19-41); Mean Corp Hgb Conc 32.3 g/dL (32-36); Mean Corpuscular Hgb 26.4 pg (27.0-32.0); Mean Corpuscular Volume 81.6 fL (81-99); Mean Platelet Vol. 10.2 fl (6.2-12.0); Monocyte# 0.39 X10^3/uL; Monocyte% 8.1 % (0-10); NRBC Flagged by Analyzer 0 % (0-5); Neutrophil # 3.45 X10^3/uL (2.7-7.7); Neutrophil % 71.8 % (47-70); Platelet Count 227 K/mm3 (150-450); RBC Distribution Width CV 14.3 % (11.6-14.6); RBC Distribution Width SD 42.8 fl (35.1-43.9); Red Blood Count 4.85 M/mm3 (4.2-5.4); White Blood Count 4.8 K/mm3 (4.4-11.0)
[2023-08-07 13:03] LABS: AST(SGOT) 19 U/L (15-37); Alanine Aminotransfer ALT/SGPT 24 U/L (13-56); Albumin, Serum 3.8 g/dL (3.2-5.0); Alkaline Phosphatase 92 U/L (45-117); Anion Gap 5 (5-15); BUN 17 mg/dL (7-18); BUN/Creat Ratio 20.8 RATIO (10-20); Calcium,Total 9.8 mg/dL (8.5-10.1); Chloride 104 mmol/L (98-107); Creatinine, Serum 0.82 mg/dL (0.55-1.02); EST Glomerular Filtration Rate 73 mL/min (>60); Est Glom Filt Rate - Afr Amer 89 mL/min (>60); Globulin 3.7 g/dL (2.2-4.2); Glucose 93 mg/dL (74-106); Potassium 3.9 mmol/L (3.5-5.1); Protein, Total 7.5 g/dL (6.4-8.2); Sodium Level 141 mmol/L (136-145)
== END | disposition home or self-care (01) ==
LOC: BIMLAB 11:14
PROVIDERS: PCP Internal Medicine; Visit Provider Internal Medicine
DX: I10 Essential (primary) hypertension (principal)
CPT/HCPCS: 36415; 80053; 85025

== ENCOUNTER → 2023-11-04 | Outpatient (CLI) | payer MEDICARE, MEDICAID, SELFPAY ==
--- NOTE | 2023-11-04 10:17 | RAD_ITS ---
INDICATION: coccydynia s/p fall 2 weeks ago EXAMINATION/TECHNIQUE: X-RAY - XR Pelvis 1 or 2 Views COMPARISON: Prior study dated: 09/10/2013 FINDINGS: PELVIC BONES: Deformity of the left inferior pubic ramus likely due to old fracture. No evidence of displaced acute fracture. Note that overlapping bowel shadows may however obscure fine detail. Sacroiliac joints are unremarkable. No widening of the pubic symphysis. HIPS: The articular structures are unremarkable. No displaced fracture seen in this frontal view. SOFT TISSUES: No soft tissue swelling or gas. RAD/Pelvis 1 or 2 Views IMPRESSION: Deformity of the left inferior pubic ramus likely due to old fracture. Electronically Signed: Bucky Ornelas MD at 13:26 EDT ,
[2023-11-04 12:59] LABS: Hematocrit 40.5 % (37-47); Hemoglobin 13.2 g/dL (12.0-15.0); Mean Corp Hgb Conc 32.6 g/dL (32-36); Mean Corpuscular Hgb 26.8 pg (27.0-32.0); Mean Corpuscular Volume 82.3 fL (81-99); Platelet Count 240 K/mm3 (150-450); RBC Distribution Width CV 13.7 % (11.6-14.6); RBC Distribution Width SD 41.1 fl (35.1-43.9); Red Blood Count 4.92 M/mm3 (4.2-5.4); White Blood Count 6.5 K/mm3 (4.4-11.0)
[2023-11-04 13:28] LABS: Syphilis Antibodies Non-reactive; Vitamin B12 364 pg/mL (211-911)
[2023-11-04 14:41] LABS: ALB/GLOB Ratio 0.9 RATIO (0.9-2.4); AST(SGOT) 20 U/L (15-37); Alanine Aminotransfer ALT/SGPT 22 U/L (13-56); Albumin, Serum 3.7 g/dL (3.2-5.0); Alkaline Phosphatase 106 U/L (45-117); Anion Gap 8 (5-15); BUN 27 mg/dL (7-18); BUN/Creat Ratio 31.5 RATIO (10-20); Chloride 106 mmol/L (98-107); Creatinine, Serum 0.86 mg/dL (0.55-1.02); EST Glomerular Filtration Rate 69 mL/min (>60); Est Glom Filt Rate - Afr Amer 84 mL/min (>60); Glucose 106 mg/dL (74-106); Potassium 3.7 mmol/L (3.5-5.1); Protein, Total 7.7 g/dL (6.4-8.2); Sodium Level 140 mmol/L (136-145); Thyroid Stim Hormone (TSH) 1.13 uIU/mL (0.358-3.74)
[2023-11-07 12:09] LABS: Vitamin D 1,25-Dihydroxy 39.2 pg/mL (24.8-81.5)
[2023-11-07 17:08] LABS: Vitamin B1, Thiamine 113.8 nmol/L (66.5-200.0)
== END | disposition home or self-care (01) ==
PROVIDERS: PCP Internal Medicine; Referring Provider Psychiatry & Neurology Neurology; Visit Provider Psychiatry & Neurology Neurology
DX: M53.3 Sacrococcygeal disorders, not elsewhere classified (principal); G80.9 Cerebral palsy, unspecified; R26.9 Unspecified abnormalities of gait and mobility; I10 Essential (primary) hypertension
CPT/HCPCS: 36415; 72170; 80053; 82140; 82607; 82652; 82746; 84425; 84443; 85027; 86780

== ENCOUNTER → 2023-11-18 | Outpatient (CLI) | payer MEDICARE, MEDICAID, SELFPAY ==
--- NOTE | 2023-11-18 15:30 | MRI_ITS ---
EXAM: MR LUMBAR SPINE WITHOUT INTRAVENOUS CONTRAST CLINICAL INDICATION: Low back pain; gait disorder; lumbar degenerative TECHNIQUE: Multiplanar and multisequence MR images of the lumbar spine without intravenous contrast. COMPARISON: No relevant prior studies available. FINDINGS: VERTEBRAE: There are multiple vertebral body hemangiomas for which no follow-up is indicated. Multilevel endplate osteophytosis and facet arthrosis. There are degenerative changes partially visualized in the cervical and thoracic spine. Mild diffuse dural ectasia in the lumbosacral region with scalloping of the posterior cortex of multiple lumbar vertebrae and dilated remodeled appearance of the sacral spinal canal. Predominantly Modic type I endplate signal changes at L5-S1. Vertebral body heights are preserved. Normal alignment. No spondylolisthesis. There is preservation of the normal lumbar lordosis. SPINAL CORD: No significant abnormality. Normal position and signal intensity of the conus medullaris. SOFT TISSUES: No significant abnormality. LIVER: Posterior right hepatic cyst for which no follow-up is indicated. KIDNEYS AND URETERS: Small right renal cyst for which no follow-up is indicated. DISCS/SPINAL CANAL/NEURAL FORAMINA: T12-L1: Disc height loss and disc desiccation. Central disc herniation superimposed upon a disc bulge and mild bilateral facet arthrosis. Mild spinal canal stenosis. No significant neural foraminal narrowing. L1-L2: Disc height loss and disc desiccation. Asymmetrical disc bulge towards the left without discrete disc herniation. Mild to moderate bilateral facet arthrosis. Mild spinal canal stenosis and mild left greater than right neural foraminal narrowing. L2-L3: Disc height loss and disc desiccation. Disc bulge and moderate bilateral facet arthrosis. Mild spinal canal stenosis and mild bilateral neural foraminal narrowing. L3-L4: Disc height loss and disc desiccation. Left central to foraminal disc herniation superimposed upon a disc bulge and moderate bilateral facet arthrosis. Mild spinal canal stenosis and moderate to severe bilateral neural foraminal narrowing with right L3 nerve root impingement. L4-L5: Disc height loss and disc desiccation. Disc bulge and right foraminal to extraforaminal disc herniation. Severe bilateral facet arthrosis. Mild to moderate spinal canal stenosis and moderate to severe bilateral neural foraminal narrowing with left L4 nerve root impingement and at least abutment without impingement of the bilateral traversing L5 nerve roots. L5-S1: Disc bulge and moderate bilateral facet arthrosis. Mild to moderate spinal canal stenosis and moderate bilateral neural foraminal narrowing. Abutment without definite impingement of the bilateral foraminal L5 and bilateral traversing S1 nerve roots. MRI/Spine Lumbar (Routine) IMPRESSION: 1. Mild diffuse dural ectasia. Correlate for chronic elevated intracranial/CSF pressure. 2. Multilevel degenerative changes with mild to moderate multilevel spinal canal stenosis and variable degrees of neural foraminal narrowing. No definite nerve root impingement. Abutment of the bilateral L5 and bilateral S1 nerve roots. Electronically Signed: Cornel Dickey DO at 22:09 EDT ,
--- NOTE | 2023-11-18 16:15 | MRI_ITS ---
ACR Level 3 findings have been noted. An addendum which confirms receipt of the report will follow. EXAM: MR CERVICAL SPINE WITHOUT INTRAVENOUS CONTRAST CLINICAL INDICATION: Gait disorder; evaluate for cervical myelopathy TECHNIQUE: Multiplanar and multisequence MR images of the cervical spine without intravenous contrast were performed. COMPARISON: No relevant prior studies available. FINDINGS: VERTEBRAE: Pannus surrounding the odontoid with mild associated anterior translation of the posterior arch of C1 in relation to C2. Mild spinal canal stenosis at the level of C1 without significant mass effect upon the spinal cord. Otherwise, normal alignment. No spondylolisthesis. There is preservation of the normal cervical lordosis. SPINAL CORD: No distinct spinal cord signal abnormality is identified. SOFT TISSUES: No significant abnormality. No prevertebral soft tissue swelling. LYMPH NODES: No significant abnormality. There is no cervical adenopathy. DISCS/SPINAL CANAL/NEURAL FORAMINA: C2-C3: Disc height loss and disc desiccation. Right greater than left facet arthrosis. No significant spinal canal or neural foraminal stenosis. C3-C4: Disc height loss and disc desiccation. Bilateral facet and uncovertebral joint arthrosis and disc bulge. Mild spinal canal stenosis and severe bilateral neural foraminal narrowing with bilateral C4 nerve root impingement. C4-C5: Disc height loss and disc desiccation. Moderate to severe bilateral facet and uncovertebral joint arthrosis and mild disc bulge. Mild spinal canal stenosis and severe bilateral neural foraminal narrowing. Bilateral C5 nerve root impingement. C5-C6: Disc height loss and disc desiccation. Disc bulge. Mild to moderate bilateral facet and uncovertebral joint arthrosis with moderate bilateral neural foraminal narrowing. Mild spinal canal stenosis. C6-C7: Disc height loss and disc desiccation. Moderate to severe bilateral facet and uncovertebral joint arthrosis. Disc bulge. Mild spinal canal stenosis and at least moderate bilateral neural foraminal narrowing. At least abutment of the bilateral foraminal C7 nerve roots. C7-T1: No significant abnormality. No significant spinal canal and neural foraminal stenosis. Bilateral facet arthrosis. MRI/Spine Cervical (Routine) IMPRESSION: 1. Mild spinal canal stenosis at the level of C1 without significant mass effect upon the spinal cord. This is likely related to pannus at C1-C2 surrounding the odontoid. Consider cervical spine radiographs with flexion and extension to evaluate for instability. 2. Additional multilevel degenerative changes in the cervical spine resulting in multilevel moderate to severe neural foraminal stenosis and mild multilevel spinal canal stenosis. No spinal cord signal abnormality or critical mass effect upon the spinal cord. Bilateral C4 and bilateral C5 nerve root impingement. At least abutment of the bilateral C7 nerve roots. Correlate for associated symptoms. Recommend surgical consultation. Electronically Signed: Cornel Dickey DO at 0:00 EDT ,
== END | disposition home or self-care (01) ==
LOC: MRI 14:34
PROVIDERS: PCP Internal Medicine; Referring Provider Psychiatry & Neurology Neurology; Visit Provider Psychiatry & Neurology Neurology
DX: M54.50 Low back pain, unspecified (principal); R26.9 Unspecified abnormalities of gait and mobility; M50.00 Cervical disc disorder with myelopathy, unspecified cervical region
CPT/HCPCS: 72141; 72148

== ENCOUNTER → 2023-11-22 | Outpatient (CLI) | payer MEDICARE, MEDICAID, SELFPAY ==
--- NOTE | 2023-11-22 15:55 | MRI_ITS ---
STUDY: MRI BRAIN WITH AND WITHOUT CONTRAST REASON FOR EXAM: Female, 73 years old. gait disorder; cerebral palsy TECHNIQUE: Standardized multiplanar fat and water weighted pulse sequences were obtained. IV 12ML CLARISCAN was administered for the contrast portion of the examination. COMPARISON: None. FINDINGS: Normal size of the ventricles and extra-axial spaces for the patient''s age. Mild chronic periventricular white matter ischemic change without mass effect or restricted diffusion.. Normal bilateral basal ganglia. Normal thalami. There is no extra-axial fluid accumulation. Normal flow voids within the major intracranial circulation suggesting patency by spin echo criteria. Normal venous enhancement. There is no enhancing intra-axial or extra-axial abnormality. Normal sella turcica, pituitary gland, infundibular stalk, optic chiasm and hypothalamus. Normal tectal plate and pineal gland. Normal midbrain, pancho and medulla. Normal cerebellum. Normal basal cisterns. Normal bilateral temporal bones. Normal bilateral internal auditory canals. No demonstrated orbital abnormality, within the constraints of a routine brain study. Normal visualized paranasal sinuses. Normal calvarium and skull base. Normal visualized soft tissue structures. Normal visualized upper cervical spine. MRI/Brain W/WO Contrast IMPRESSION: Mild periventricular white matter chronic ischemic changes without evidence for acute infarct.. No enhancing lesions following contrast administration Electronically Signed: Brian Santa MD at 18:34 EDT ,
== END | disposition home or self-care (01) ==
LOC: MRI 15:51
PROVIDERS: PCP Internal Medicine; Referring Provider Psychiatry & Neurology Neurology; Visit Provider Psychiatry & Neurology Neurology
DX: R26.9 Unspecified abnormalities of gait and mobility (principal); G80.9 Cerebral palsy, unspecified
CPT/HCPCS: 70553; A9575

== ENCOUNTER 2024-07-15 14:30 | Outpatient (RCR) | payer MEDICARE, MEDICAID, SELFPAY ==
--- NOTE | 2024-03-16 16:37 | HP.PTEVAL_ITS ---
Patient's Visit Information Visit Information Visit Information: ARIANA CHRISTIAN is a 74 year old F referred to Physical Therapy by Dr. Del Mercado MD with a diagnosis of RADICULOPATHY LUMBAR ,LOW BACK PAIN ,CEREBRAL PALSY. Date of Evaluation: 03/16/24 Physical Therapist: Seven Juarez, PT, Cert MDT, OCS Visit Plan Frequency: 2x /Week Duration: 4 Weeks Plan: PT INTERVENTIONS DLS ,POSTURAL EX'S ,LUMBAR FLEXION ,LE FLEXABILITY AND FUNCTIONAL STRENGTHENING Subjective Subjective: This 74 y/o female presents to physical therapy with lumbar pain w ith radicular symptoms. Patient has had lumbar pain may years. Patient has h/o cerebral palsy and has been in PT for back and balance most recently. Patient seen DR had MRI of cervical and lumbar showed stenosis and foraminal stenosis mod /severe multiple levels. Patient has had Brain MRI. Patient has h/o falls but none recently last ~ 2-3 months ago. Patient back pain symmetrical right lower leg described as sharp pain and muscle spasms. Patient aggravating factors standing/walking difficulty lifting. Alleviating factors rest. Coughing/sneezing-. Bowel/bladder - Patient sleeping good. Bowel/bladder.Patient condition affects QOL and function and job demands. Patient goals to decrease pain SOCIAL: single VOCATION: disability Pain Bilateral Back: Pain Intensity (Out of 10): 5 Pain Intensity Range: 10 Objective Objective: POSTURE: mild forward posture hip/knees flexed GAIT: reciprocal pattern mild ataxia due to CP with 2 point gait with cane mild unsteady slow shan PALAPTION: unremarkable NEURO: denies paresthesia/tingling ,reflexes C5-6-7 3/3 FLEXABILITY: mod tight LUMBAR ROM: flexion mod loss ,extension mod loss ,siden glides mod loss Special Tests L/S Slump test left side: Negative L/S Slump test right side: Negative L/S Left Straight Leg Raise: Negative L/S Right Straight Leg Raise: Negative Balance/Special Test Scores Oswestry Low Back Score: 29 Goals Goal 1:: Patient to be I with HEP Goal Time Frame: 4-6 Weeks Goal 2:: Patient to improve back oswestry score by 5 points to improve QOL, Goal Time Frame: 4-6 Weeks Goal 3:: Patient be able to improve lumbar ROM for function of recovery to pu on shoes Goal Time Frame: 4-6 Weeks Goal 4:: Patient to demonstrate 50% improvement with with walking and ADL Goal Time Frame: 4-6 Weeks Goal 5:: Patient to improve ability to walk or standing > 30 mins with less pain Goal Time Frame: 4-6 Weeks Rehabilitation Potential Physical Therapy Diagnosis: This patient has lumbar stenosis with back pain with pain with positioning and motion testing thus benefit from skilled PT Rehabilitation Potential: Good Anticipated Interventions Patient/Client Instruction: Educate patient on: Condition and Plan of Care For the Purpose of:: To decrease pain, To increase ROM, To improve muscle performance and motor function, To improve ability to perform ADL's, To increase tolerance to activity/condition/position, To improve performance and independence with ADL's, To improve ability of physical actions for home/community/work/leisure, To improve health of tissue, To decrease soft tissue restriction and To increase flexibility/ROM Therapeutic Exercise to Include: Strength training, Body mechanics, Postural training, Flexibilty training and Dynamic Lumbar Stabilization For the Purpose of:: To decrease pain, To increase ROM, To improve muscle performance and motor function, To improve ability to perform ADL's, To increase tolerance to activity/condition/position, To improve ability of physical actions for home/community/work/leisure, To improve health of tissue, To decrease soft tissue restriction and To increase flexibility/ROM Text: Thank you for the opportunity to evaluate your patient. For Medicare and Medicare HMO plans, please review the plan of care and approve it. It will need to be FAXED BACK to us at [phone] for Medicare purposes. For Medicare only, by signing this I certify the plan of care. Please let me know if there are questions or concerns regarding this plan of care. Physician Signature: ____Date:
--- NOTE | 2024-05-13 15:21 | HP.PTREVAL ---
Re-Evaluation Intro: Dr. Del Mercado MD, It has been my pleasure to treat ARIANA CHRISTIAN over the last 17 visits for RADICULOPATHY LUMBAR ,LOW BACK PAIN ,CEREBRAL PALSY. Please see the progress note below for an update on the physical therapy plan of care! Subjective Subjective: Patient feels therapy is making my legs stronger Objective Objective/Function: Patient will cont to benefit from skilled PT with no pain to decrease back pain and improve function with strength thus goals cont to be appropriate and adjusted POSTURE: mild forward posture hip/knees flexed GAIT: reciprocal pattern mild ataxia due to CP with 2 point gait with cane mild unsteady slow shan PALAPTION: unremarkable NEURO: denies paresthesia/tingling ,reflexes C5-6-7 3/3 FLEXABILITY: mod tight LUMBAR ROM: flexion mod loss ,extension mod loss ,siden glides mod loss Plan Plan Plan: PT INTERVENTIONS DLS ,POSTURAL EX'S ,LUMBAR FLEXION ,LE FLEXABILITY AND FUNCTIONAL STRENGTHENING Balance/Gait/Functional tests Balance/Special Test Scores Oswestry Low Back Score: 22 Goals Goals Goal 1:: Patient to be I with HEP Goal Time Frame: 4-6 Weeks Goal Progress: Progressing Goal 2:: Patient to improve back oswestry score by 5 points to improve QOL, Goal Time Frame: 4-6 Weeks Goal Progress: Progressing Goal 3:: Patient be able to improve lumbar ROM for function of recovery to pu on shoes Goal Time Frame: 4-6 Weeks Goal Progress: Progressing Goal 4:: Patient to demonstrate 50% improvement with with walking and ADL Goal Time Frame: 4-6 Weeks Goal Progress: Progressing Goal 5:: Patient to improve ability to walk or standing >40 mins with less pain( new goal) Goal Time Frame: 4-6 Weeks Goal Progress: Progressing Anticipated Interventions Anticipated Interventions Patient/Client Instruction: Educate patient on: Condition and Plan of Care For the Purpose of:: To decrease pain, To increase ROM, To improve muscle performance and motor function, To improve ability to perform ADL's, To increase tolerance to activity/condition/position, To improve performance and independence with ADL's, To improve ability of physical actions for home/community/work/leisure, To improve health of tissue, To decrease soft tissue restriction and To increase flexibility/ROM Therapeutic Exercise to Include: Strength training, Body mechanics, Postural training, Flexibilty training and Dynamic Lumbar Stabilization For the Purpose of:: To decrease pain, To increase ROM, To improve muscle performance and motor function, To improve ability to perform ADL's, To increase tolerance to activity/condition/position, To improve ability of physical actions for home/community/work/leisure, To improve health of tissue, To decrease soft tissue restriction and To increase flexibility/ROM Re-Evaluation Ending Re-evaluation ending: Please do not hesitate to contact me at [phone] by phone or if you have questions or concerns regarding this new plan of care! Sincerely, Seven Juarez, PT, Cert MDT, OCS
--- NOTE | 2024-05-25 15:20 | HP.PTREVAL ---
Re-Evaluation Intro: Dr. Del Mercado MD, It has been my pleasure to treat ARIANA CHRISTIAN over the last 20 visits for RADICULOPATHY LUMBAR ,LOW BACK PAIN ,CEREBRAL PALSY. Please see the progress note below for an update on the physical therapy plan of care! Subjective Subjective: Patient reports PT is helping and get acupuncture for bladder Patient reports pain is better no falls recently Objective Objective/Function: Patient will cont to benefit from skilled PT with no pain to decrease back pain and improve function with strength with gait thus goals cont to be appropriate and adjusted POSTURE: mild forward posture hip/knees flexed GAIT: reciprocal pattern mild ataxia due to CP with 2 point gait with cane mild unsteady slow shan PALAPTION: unremarkable NEURO: denies paresthesia/tingling ,reflexes C5-6-7 3/3 FLEXABILITY: mod tight LUMBAR ROM: flexion mod loss ,extension mod loss ,side glides mod loss Plan Plan Plan: PT INTERVENTIONS DLS ,POSTURAL EX'S ,LUMBAR FLEXION ,LE FLEXABILITY AND FUNCTIONAL STRENGTHENING Balance/Gait/Functional tests Balance/Special Test Scores Oswestry Low Back Score: 20 Goals Goals Goal 1:: Patient to be I with HEP Goal Time Frame: 4-6 Weeks Goal Progress: Progressing Goal 2:: Patient to improve back oswestry score by 5 points to improve QOL, Goal Time Frame: 4-6 Weeks Goal Progress: Progressing Goal 3:: Patient be able to improve lumbar ROM for function of recovery to pu on shoes Goal Time Frame: 4-6 Weeks Goal Progress: Progressing Goal 4:: Patient to demonstrate 50% improvement with with walking and ADL Goal Time Frame: 4-6 Weeks Goal Progress: Progressing Goal 5:: Patient to improve ability to walk or standing >40 mins with less pain( new goal) Goal Time Frame: 4-6 Weeks Goal Progress: Progressing Anticipated Interventions Anticipated Interventions Patient/Client Instruction: Educate patient on: Condition and Plan of Care For the Purpose of:: To decrease pain, To increase ROM, To improve muscle performance and motor function, To improve ability to perform ADL's, To increase tolerance to activity/condition/position, To improve performance and independence with ADL's, To improve ability of physical actions for home/community/work/leisure, To improve health of tissue, To decrease soft tissue restriction and To increase flexibility/ROM Therapeutic Exercise to Include: Strength training, Body mechanics, Postural training, Flexibilty training and Dynamic Lumbar Stabilization For the Purpose of:: To decrease pain, To increase ROM, To improve muscle performance and motor function, To improve ability to perform ADL's, To increase tolerance to activity/condition/position, To improve ability of physical actions for home/community/work/leisure, To improve health of tissue, To decrease soft tissue restriction and To increase flexibility/ROM Re-Evaluation Ending Re-evaluation ending: Please do not hesitate to contact me at [phone] by phone or if you have questions or concerns regarding this new plan of care! Sincerely, Seven Juarez, PT, Cert MDT, OCS
--- NOTE | 2024-06-15 15:21 | HP.PTREVAL ---
Re-Evaluation Intro: Dr. Del Mercado MD, It has been my pleasure to treat ARIANA CHRISTIAN over the last 25 visits for RADICULOPATHY LUMBAR ,LOW BACK PAIN ,CEREBRAL PALSY. Please see the progress note below for an update on the physical therapy plan of care! Subjective Subjective: Patient states getting better ,walking better ,although patient had mechanical fall tripped on cane food Objective Objective/Function: Patient will cont to benefit from skilled PT with no pain to decrease back pain and improve function with strength with gait thus goals cont to be appropriate and added balance goal POSTURE: mild forward posture hip/knees flexed GAIT: reciprocal pattern mild ataxia due to CP with 2 point gait with cane mild unsteady slow shan PALAPTION: unremarkable NEURO: denies paresthesia/tingling ,reflexes C5-6-7 3/3 FLEXABILITY: mod tight LUMBAR ROM: flexion mod loss ,extension mod loss ,side glides mod loss Plan Plan Plan: PT INTERVENTIONS DLS ,POSTURAL EX'S ,LUMBAR FLEXION ,LE FLEXABILITY AND FUNCTIONAL STRENGTHENING Balance/Gait/Functional tests Balance/Special Test Scores CATSIB Score (Max score 120 seconds): 40 Oswestry Low Back Score: 20 Goals Goals Goal 1:: Patient to be I with HEP Added goal : Increase CaTSIB by 5-10 points to improve balance Goal Time Frame: 4-6 Weeks Goal Progress: Progressing Goal 2:: Patient to improve back oswestry score by 5 points to improve QOL, Goal Time Frame: 4-6 Weeks Goal Progress: Progressing Goal 3:: Patient be able to improve lumbar ROM for function of recovery to pu on shoes Goal Time Frame: 4-6 Weeks Goal Progress: Progressing Goal 4:: Patient to demonstrate 60% improvement with with walking and ADL Goal Time Frame: 4-6 Weeks Goal Progress: Progressing Goal 5:: Patient to improve ability to walk or standing >40 mins with less pain( new goal) Goal Time Frame: 4-6 Weeks Goal Progress: Progressing Anticipated Interventions Anticipated Interventions Patient/Client Instruction: Educate patient on: Condition and Plan of Care For the Purpose of:: To decrease pain, To increase ROM, To improve muscle performance and motor function, To improve ability to perform ADL's, To increase tolerance to activity/condition/position, To improve performance and independence with ADL's, To improve ability of physical actions for home/community/work/leisure, To improve health of tissue, To decrease soft tissue restriction and To increase flexibility/ROM Therapeutic Exercise to Include: Strength training, Body mechanics, Postural training, Flexibilty training and Dynamic Lumbar Stabilization For the Purpose of:: To decrease pain, To increase ROM, To improve muscle performance and motor function, To improve ability to perform ADL's, To increase tolerance to activity/condition/position, To improve ability of physical actions for home/community/work/leisure, To improve health of tissue, To decrease soft tissue restriction and To increase flexibility/ROM Re-Evaluation Ending Re-evaluation ending: Please do not hesitate to contact me at [phone] by phone or if you have questions or concerns regarding this new plan of care! Sincerely, Seven Juarez PT, Cert MDT, OCS
--- NOTE | 2024-07-15 15:19 | HP.PTDCSUM ---
Discharge Summary D/C summary: It has been my pleasure to treat ARIANA CHRISTIAN referred by Dr. Del Mercado MD, with the diagnosis of RADICULOPATHY LUMBAR ,LOW BACK PAIN ,CEREBRAL PALSY for a total of 32 visit(s). Discharge Date: 07/15/24 Please see the following information for a summary of their discharge status. Subjective Subjective: Will try ex's on own for a while Pain Bilateral Back: Pain Intensity (Out of 10): 0 Overall Improvement % Improvement: 65 Objective Objective/Function: POSTURE: mild forward posture hip/knees flexed GAIT: reciprocal pattern mild ataxia due to CP with 2 point gait with cane mild unsteady slow shan PALAPTION: unremarkable NEURO: denies paresthesia/tingling ,reflexes C5-6-7 3/3 FLEXABILITY: mod tight hamstrings LUMBAR ROM: flexion min loss ,extension mod loss ,side glides min loss Goals Goal 1:: Patient to be I with HEP Added goal : Increase CaTSIB by 5-10 points to improve balance Goal Progress: Progressing Goal 2:: Patient to improve back oswestry score by 5 points to improve QOL, Goal Progress: Progressing Goal 3:: Patient be able to improve lumbar ROM for function of recovery to pu on shoes Goal Progress: Progressing Goal 4:: Patient to demonstrate 60% improvement with with walking and ADL Goal Progress: Progressing Goal 5:: Patient to improve ability to walk or standing >40 mins with less pain( new goal) Goal Progress: Progressing Plan Plan: D/C D/C Information Discharge Comments: hep d/c sentence: If there are questions or concerns regarding this patient's physical therapy, please feel free to call me at [phone]. Thank you for the referral of this patient. Sincerely, Seven Juarez, PT, Cert MDT, OCS Balance/Gait/Functional tests Balance/Special Test Scores CATSIB Score (Max score 120 seconds): 40 Oswestry Low Back Score: 20 Improvement % Improvement: 65
== END 2024-07-15 19:00 | disposition home or self-care (01) ==
LOC: PT 14:30
PROVIDERS: PCP Internal Medicine; Visit Provider Psychiatry & Neurology Neurology
DX: G80.9 Cerebral palsy, unspecified (principal); R26.9 Unspecified abnormalities of gait and mobility; M54.16 Radiculopathy, lumbar region; M54.50 Low back pain, unspecified
CPT/HCPCS: 97110; 97162; 97530

== ENCOUNTER → 2024-08-10 | Outpatient (CLI) | payer MEDICARE, MEDICAID, SELFPAY ==
[2024-08-10 19:25] LABS: Anion Gap 15 (5-15); BUN 28 mg/dL (4-19); Calcium,Total 10.2 mg/dL (7.6-11.0); Carbon Dioxide 25.2 mmol/L (21.0-32.0); Chloride 99 mmol/L (98-108); Glucose 89 mg/dL (70-99); Sodium Level 139 mmol/L (133-145)
[2024-08-10 19:33] LABS: BUN/Creat Ratio 24.5 RATIO (10-20); Creatinine, Serum 1.13 mg/dL (0.70-1.20); EST Glomerular Filtration Rate 52 (>60)
== END | disposition home or self-care (01) ==
PROVIDERS: PCP Internal Medicine; Referring Provider Psychiatry & Neurology Neurology; Visit Provider Psychiatry & Neurology Neurology
DX: G80.9 Cerebral palsy, unspecified (principal)
CPT/HCPCS: 36415; 80048

== ENCOUNTER → 2024-12-11 | Outpatient (CLI) | payer MEDICARE, MEDICAID, SELFPAY ==
[2024-12-11 15:16] LABS: Hematocrit 38.5 % (37-47); Hemoglobin 12.7 g/dL (12.0-15.0); Immature Granulocytes Count 0.010 X10^3/uL (0.0-0.0); Mean Corp Hgb Conc 33.0 g/dL (32-36); Mean Corpuscular Volume 81.9 fL (81-99); Mean Platelet Vol. 10.2 fl (6.2-12.0); NRBC Flagged by Analyzer 0 % (0-5); Platelet Count 254 K/mm3 (150-450); RBC Distribution Width CV 13.7 % (11.6-14.6); RBC Distribution Width SD 41.0 fl (35.1-43.9); Red Blood Count 4.70 M/mm3 (4.2-5.4); White Blood Count 5.0 K/mm3 (4.4-11.0)
[2024-12-11 16:12] LABS: AST(SGOT) 32 U/L (<=31); Alanine Aminotransfer ALT/SGPT 28 U/L (<=34); Albumin, Serum 4.3 g/dL (3.4-4.8); Alkaline Phosphatase 73 U/L (35-104); Anion Gap 13 (5-15); BUN 24 mg/dL (4-19); BUN/Creat Ratio 26.0 RATIO (10-20); Calcium,Total 10.0 mg/dL (7.6-11.0); Carbon Dioxide 28.1 mmol/L (21.0-32.0); Chloride 100 mmol/L (98-108); Cholesterol 222 mg/dL (<=200); Globulin 2.8 g/dL (2.2-4.2); Glucose 94 mg/dL (70-99); Low Density Lipoprotein Calc. 133 mg/dL; Potassium 3.8 mmol/L (3.3-5.1); Triglycerides 59 mg/dL; Very Low Density Lipoprotein 12 mg/dL (5-40); cholesterol:hdl ratio screen 2.88
== END | disposition home or self-care (01) ==
LOC: BIMLAB 11:57
PROVIDERS: PCP Internal Medicine; Referring Provider Physician Assistant; Visit Provider Physician Assistant
DX: I10 Essential (primary) hypertension (principal)
CPT/HCPCS: 36415; 80053; 80061; 84443; 85025

== ENCOUNTER → 2025-02-05 | Outpatient (CLI) | payer MEDICARE, MEDICAID, SELFPAY ==
[2025-02-05 16:30] LABS: Potassium 3.9 mmol/L (3.3-5.1)
== END | disposition home or self-care (01) ==
LOC: BIMLAB 14:24
PROVIDERS: Physician Assistant; PCP Internal Medicine; Referring Provider Internal Medicine; Visit Provider Internal Medicine
DX: E87.6 Hypokalemia (principal)
CPT/HCPCS: 36415; 84132

== ENCOUNTER → 2025-05-11 | Outpatient (CLI) | payer MEDICARE, MEDICAID, SELFPAY ==
[2025-05-11 17:45] LABS: Hematocrit 37.5 % (37-47); Hemoglobin 12.2 g/dL (12.0-15.0); Immature Granulocytes Count 0.030 X10^3/uL (0.0-0.0); Mean Corp Hgb Conc 32.5 g/dL (32-36); Mean Corpuscular Volume 82.2 fL (81-99); Mean Platelet Vol. 10.5 fl (6.2-12.0); NRBC Flagged by Analyzer 0 % (0-5); Platelet Count 254 K/mm3 (150-450); RBC Distribution Width CV 13.7 % (11.6-14.6); RBC Distribution Width SD 41.1 fl (35.1-43.9); Red Blood Count 4.56 M/mm3 (4.2-5.4); White Blood Count 7.1 K/mm3 (4.4-11.0)
[2025-05-11 17:57] LABS: AST(SGOT) 21 U/L (<=31); Alanine Aminotransfer ALT/SGPT 21 U/L (<=34); Albumin, Serum 4.1 g/dL (3.4-4.8); Alkaline Phosphatase 59 U/L (35-104); Anion Gap 12 (5-15); BUN 24 mg/dL (4-19); BUN/Creat Ratio 26.3 RATIO (10-20); Calcium,Total 9.3 mg/dL (7.6-11.0); Carbon Dioxide 27.8 mmol/L (21.0-32.0); Chloride 100 mmol/L (98-108); Globulin 1.9 g/dL (2.2-4.2); Glucose 84 mg/dL (70-99); Potassium 3.8 mmol/L (3.3-5.1)
== END | disposition home or self-care (01) ==
LOC: MTLAB 14:22
PROVIDERS: PCP Internal Medicine; Referring Provider Physician Assistant; Visit Provider Physician Assistant
DX: I10 Essential (primary) hypertension (principal); E87.6 Hypokalemia
CPT/HCPCS: 36415; 80053; 85025